=== PATIENT | female | born 1980 | race Caucasian/White ===

== ENCOUNTER 2016-05-13 19:50 | Emergency (ER) | payer SELFPAY ==
[~2016-05-13] VITALS: Ht 162.6 cm; Wt 63.5 kg
[~2016-05-13 19:50] MED LIST: ALPR1TAB PO; ALPR1TAB2 PO; AZIT250T5 PO; CEPH500T PO; CHLO25TA2 PO; CHLORTHALID; CIPR-225 PO; CIPR500T78 PO; CODE-54 PO; CPR250T PO; CPR500T PO; CYCL10TA9 PO; DIAZ-345 PO; DIAZ10TA PO; DXM4T PO; HYDR-1231 PO; HYDR-229 PO; HYDR-3583 PO; HYDR-3812 PO; HYDR-3816 PO; HYDR-3820 PO; HYDR-756 PO; HYDR-757 PO; HYDR1TAB PO; HYDR1TAB8 OP; IBUP-1773 PO; LEVO500T69 PO; LURA60TA PO; LURA60TA2 PO; METH4TAB PO; NAPR-243 PO; NAPR500T PO; NITR100C3 PO; ONDA-42 SL; ONDA8TAB13 PO; ONDAN4ODT PO; ORPH100T PO; PHEN-452 PO; PHEN-566 PO; PHEN-639 PO; PHEN-640 PO; PHEN200T27 PO; PHEN37.555 PO; PRM25T PO; SULF1TAB38 PO; TMSL.4C PO; TRAM-42 PO; TRAM50TA2 PO; TRM50T PO
--- NOTE | 2016-05-13 20:24 | ED Cough/URI ---
General Chief Complaint: Cough/Cold/Flu Symptoms Stated Complaint: CONGESTION,COUGH Source: patient History of Present Illness Time seen by provider: 20:12 Initial Comments PT C/O PRODUCTIVE COUGH AND CONGESTION X 4-5 DAYS CAN'T SLEEP DUE TO COUGH--MINIMAL IMPROVEMENT WITH ROBITUSSIN AND COUGH DROPS HAS HAD SUBJECTIVE FEVER AND CHILLS--IBUPROFEN 400 MG AT 1400 TODAY C/O SHORTNESS OF BREATH WITH COUGH C/O RIGHT MID/ UPPER BACK--WITH COUGHING AND DEEP BREATHS C/O CLEAR SINUS DRAINAGE AND SINUS PRESSURE SYMPTOMS WORSE SINCE YESTERDAY NO KNOWN SICK CONTACTS PT HAS "SEASONAL ASTHMA" AND HAS ALBUTEROL INHALER AT HOME, BUT HAS NOT USED IT PCP: [facility] Allergies and Home Medications Allergies Coded Allergies: ketorolac (Unverified Allergy, Intermediate, nausea and red streaking, 31/10) morphine (Unverified Allergy, Intermediate, throat tightening, 01/21/11) Home Medications Alprazolam 1 Mg Tab.er.24h, 1 MG PO DAILY, (Reported) Amoxicillin/Potassium Clav 1 Each Tablet, 1 EACH PO BID, #20 Prescribed by: DEYSI MAX on 05/13/162118 Benzonatate 100 Mg Capsule, 1-2 TAB PO TID, #30 Prescribed by: DEYSI MAX on 05/13/162118 Hydrocodone/Acetaminophen 1 Each Tablet, 1 EACH PO Q4H PRN for PAIN, #20 Ref 0 Prescribed by: BHAVIK LOVE on 08/09/15 1340 Hydrocodone/Acetaminophen 1 Each Tablet, 1 EACH PO QID, #10 Prescribed by: LISET DANG on 10/26/15 1021 Lurasidone HCl 60 Mg Tablet, 60 MG PO DAILY, (Reported) Methylprednisolone 4 Mg Tab.ds.pk, 4 MG PO UD, #1 Prescribed by: DEYSI MAX on 05/13/162118 Phentermine HCl 30 Mg Capsule, 30 MG PO DAILY, (Reported) Tramadol HCl 50 Mg Tablet, 50 MG PO Q4H, #20 Prescribed by: DEYSI MAX on 05/15/15 0130 Constitutional: see HPI, chills, diaphoresis, fever EENTM: nose congestion, see HPI, No ear pain, No throat pain Respiratory: see HPI, cough, short of breath Cardiovascular: no symptoms reported Gastrointestinal: no symptoms reported Genitourinary: no symptoms reported : No (ON DEPO-PROVERA AND HAS HAD BTL) Musculoskeletal: see HPI, back pain Skin: no symptoms reported Psychiatric/Neurological: No Symptoms Reported Hematologic/Lymphatic: No Symptoms Reported Immunological/Allergic: see HPI Past Tlaclny-Kmrzqt-Zbflcg Hx Patient Social History Alcohol Use: Denies Use Recreational Drug Use: No Smoking Status: Current Everyday Smoker (1 PPD) Type Used: Cigarettes Recent Foreign Travel: No Contact w/Someone Who Travel: No Recent Hopitalizations: No Immunizations Up To Date Tetanus Booster (TDap): Less than 5yrs Date of Influenza Vaccine: Oct 24, 2011 Seasonal Allergies Seasonal Allergies: Yes Surgeries HX Surgeries: Yes (R SALPINGECTOMY FOR ECTOPIC,L SALPINGECTOMY FOR HYDROSALPINX /OVARIAN CYST) Surgeries: Tubal Ligation Respiratory Hx Respiratory Disorders: Yes Respiratory Disorders: Asthma Cardiovascular Hx Cardiac Disorders: No Neurological Hx Neurological Disorders: No Reproductive System Hx Reproductive Disorders: Yes ( ) Sexually Transmitted Disease: No HIV/AIDS: No Female Reproductive Disorders: Ovarian Cyst [employer] History: Tubal Ligation Genitourinary Hx Genitourinary Disorders: Yes (NO INTERVENTION FOR KIDNEY STONES) Genitourinary Disorders: Bladder Infection, Kidney Stones Gastrointestinal Hx Gastrointestinal Disorders: No Musculoskeletal Hx Musculoskeletal Disorders: No Endocrine Hx Endocrine Disorders: No HEENT HX ENT Disorders: No Cancer Hx Cancer: No Psychosocial Hx Psychiatric Problems: Yes (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 FREQUENT TIGHT COUGH) HEENT: PERRL/EOMI, TMs normal, pharynx normal, other (NASAL MUCOSAL EDEMA, MAXILLARY SINUS TENDERNESS) Neck: non-tender, full range of motion, supple, normal inspection, No lymphadenopathy (R), No lymphadenopathy (L) Respiratory: no respiratory distress, no accessory muscle use, other (LUNG SOUNDS COARSE) Cardiovascular: normal peripheral pulses, regular rate, rhythm, no edema, no JVD, no murmur Gastrointestinal: normal bowel sounds, non tender, soft Extremities: normal inspection Neurologic/Psychiatric: application dba II-XII nml as tested, no motor/sensory deficits, alert, normal mood/affect, oriented x 3 Skin: normal color, warm/dry Progress/Results/Core Measures Results/Orders Micro Results Microbiology 05/13/16 Influenza Types A,B Antigen (LORETA) - Final, Complete My Orders Orders - DEYSI MAX DO Influenza A And B Antigens (05/13/16 20:17) Chest Pa/Lat (2 View) (05/13/16 20:17) Amoxicillin/Clavulanate Tablet (Augmenti (05/13/16 21:30) Benzonatate Capsule (Tessalon Perles) (05/13/16 21:30) Vital Signs/I&O Vital Sign - Last 12Hours 05/13/16 05/13/16 05/13/16 19:58 19:58 21:24 Temp 98.9 98.9 Pulse 128 115 Resp 18 18 B/P (MAP) 145/93 Pulse Ox 97 98 O2 Delivery Room Air Room Air Diagnostic Imaging Comments CXR--NO ACUTE PROCESS, PER RADIOLOGIST REPORT Reviewed: Reviewed by Me Departure Impression Impression: Primary Impression: Bronchitis Additional Impression: Sinusitis Disposition: 01 HOME, SELF-CARE Condition: Stable Departure-Patient Inst. Referrals: [facility] (PCP/Family) Primary Care Physician Patient Instructions: Acute Bronchitis, Adult (DC), Sinusitis, Adult (DC) Add. Discharge Instructions: ROBITUSSIN DM FOR COUGH TYLENOL 1 GRAM/ MOTRIN 800 MG 4 TIMES A DAY FOR PAIN OR FEVER LOTS OF CLEAR LIQUIDS FOLLOW UP WITH YOUR DR IN 3-4 DAYS IF NO BETTER All discharge instructions reviewed with patient and/or family. Voiced understanding. Scripts Benzonatate (Tessalon Perle) 100 Mg Capsule 1-2 TAB PO TID for Cough, #30 CAP Prov: MANSOOR,DEYSI K DO 05/13/16 Methylprednisolone (Medrol) 4 Mg Tab.ds.pk 4 MG PO UD, #1 PKG Prov: MANSOOR,DEYSI K DO 05/13/16 Amoxicillin/Potassium Clav (Augmentin 875-125 Tablet) 1 Each Tablet 1 EACH PO BID for INFECTION, #20 TAB Prov: DEYSI MAX DO 05/13/16 MANSOORDEYSI Amanda HUFFMAN May 13, 2016 20:24
--- NOTE | 2016-05-13 20:30 | Diagnostic Imaging Report ---
CHEST PA/LAT (2 VIEW) Indication: Cough Comparison: 06/04/15 Findings: No focal pneumonic consolidation, pleural effusion or pneumothorax. Normal heart size and pulmonary vasculature. Impression: No acute cardiopulmonary process. Dictated by: Dictated on workstation # [id number]
[2016-05-13] MEDS ORDERED: AMOX-358 PO (21:19)
[2016-05-13] MEDS ORDERED: BENZ-13 PO (21:19)
[2016-05-13] MEDS ORDERED: METH4TAB PO (21:19)
[2016-05-13 21:24] VITALS: BP 140/91
[2016-05-13] MEDS ORDERED: AUGMENTIN 875 MG TAB (AMOXICILLIN/CLAVULANATE) PO SCH (21:30)
[2016-05-13] MEDS ORDERED: BENZONATATE 100 MG (TESSALON) CAPSULE PO SCH (21:30)
--- OUTSIDE RECORDS SUMMARY | 2016-05-28 19:24 | XMS REPORT ---
Author Author [facility] Organization [facility] Address [address] [facility] [address] [place], [place] [id number] Care Team Providers Care Leaf Conditioner Name Role Phone PCP Unavailable Allergies and Adverse Reactions Name Reaction Notes Morphine Sulfate Ketorolac Plan of Treatment Not available. Medications Active Name Start Date Estimated Completion Date SIG Comments Depo-Provera 150 mg/mL intramuscular suspension inject 150 mg by intramuscular route every 3 months [place] 5-325 mg oral tablet take 1 tablet by oral route every 6 hours as needed for pain Keflex 500 mg oral capsule 1 Capsule TWICE daily. Xanax XR 0.5 mg oral tablet extended release 24 hr take 1 tablet (0.5 mg ) by oral route once daily Latuda 60 mg oral tablet take 1 tablet (60 mg) by oral route once daily with food (at least 350 calories) amoxicillin 500 mg oral capsule take 1 capsule (500 mg) by oral route 4 times per day Problem List Not available. Vital Signs Not available. Social History Name Description Comments Smoker 08/15/2015 - Cigarette History of Procedures Not available. Results Summary Not available. History Of Immunizations Not available. History of Past Illness Name Date of Onset Comments Anxiety Payers Not available. History of Encounters Not available.
--- OUTSIDE RECORDS SUMMARY | 2016-05-28 19:24 | XMS REPORT | Clinical Summary ---
Author Author Admin, [facility] Organization All Address Unknown Phone Unavailable Allergies, Adverse Reactions, Alerts Allergy Name Reaction Description Start Date Severity Status Provider Allergies Unknown Conditions or Problems Problem Name Problem Code Onset Date Status Entry Date Provider Comment Standard Description Annotate Problems Unknown Active Medication List Medication Instructions Start Date Stop Date Generic Name NDC Status Provider Patient Instruction PREDNISONE 20 MG ORAL TABS take 2 tabs a day for 3 days and take 1 tab a day for 3 days. PREDNISONE 70900224990 Active Ingrid Bautista MA Active
--- OUTSIDE RECORDS SUMMARY | 2016-05-28 19:25 | XMS REPORT | Clinical Summary ---
Author Author Admin, [facility] Organization All Address Unknown Phone Unavailable [...] tab a day for 3 days. PREDNISONE [id number] Active Ingrid Bautista MA Active
--- OUTSIDE RECORDS SUMMARY | 2016-05-28 19:25 | XMS REPORT ---
Author Author MARCIN VÁSQUEZ [facility] [place] eClinical[employer] Address Unknown Phone Unavailable Care Team Providers Care Volcanologist Name Role Phone MARCIN VÁSQUEZ CP Unavailable Allergies No Known Allergies Problems Problem Type Condition Code Onset Dates Condition Status Problem Phlebitis and thrombophlebitis of unspecified site 451.9 Active Problem Excessive or frequent menstruation 626.2 Active Problem Unspecified acute pericarditis 420.90 Active Problem Acute pharyngitis 462 Active Problem Generalized anxiety disorder F41.1 Active Problem Depression F32.9 Active Problem Kidney stone N20.0 Active Problem Anxiety state, unspecified 300.00 Active Problem Other malaise and fatigue 780.79 Active Problem Anxiety F41.9 Active Problem Other and unspecified ovarian cyst 620.2 Active Medications No Known Medications Results No Known Results Summary Purpose eClinicalWorks Submission
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
--- OUTSIDE RECORDS SUMMARY | 2016-05-28 19:27 | XMS REPORT ---
Author Author [facility] Organization [facility] Address [address] [place], [place] [id number] Care Team Providers Care Hydramatic Specialist Name Role Phone PCP Unavailable Allergies and Adverse Reactions Name Reaction Notes Morphine Sulfate Ketorolac Plan of Treatment Not available. Medications Active Name Start Date Estimated Completion Date SIG Comments Depo-Provera 150 mg/mL intramuscular suspension inject 150 mg by intramuscular route every 3 months [place] 5-325 mg oral tablet take 1 tablet [...]
--- OUTSIDE RECORDS SUMMARY | 2016-05-28 19:27 | XMS REPORT ---
Author Author LINH FLORES Organization [employer] Address Unknown Phone Unavailable Care Team Providers Care Manager News Name Role Phone LINH FLORES CP Unavailable Allergies, Adverse Reactions, Alerts Substance Reaction Event Type Morphine Sulfate Info Not Available Drug Allergy Ketorolac Tromethamine Info Not Available Drug Allergy Problems Problem Type Condition Code Onset Dates Condition Status Problem Phlebitis and thrombophlebitis of unspecified site 451.9 Active Problem Excessive or frequent menstruation 626.2 Active Problem Unspecified acute pericarditis 420.90 Active Assessment Renal lithiasis N20.0 Active Problem Acute pharyngitis 462 Active Problem Generalized anxiety disorder F41.1 Active Problem Depression F32.9 Active Problem Kidney stone N20.0 Active Problem Anxiety state, unspecified 300.00 Active Problem Other malaise and fatigue 780.79 Active Problem Anxiety F41.9 Active Problem Other and unspecified ovarian cyst 620.2 Active Medications Medication Code System Code Instructions Start Date End Date Status Dosage Pyridium [facility] [address]-52 100 MG Orally Three times a day August 23, 2015 August 25, 2015 1 tablet after meals Ketoprofen [facility] [address]-51 75 MG Orally Three times a day August 23, 2015 1 capsule [place] [facility] [address]-20 5-325 MG Orally every 6 hrs August 23, 2015 1 tablet as needed Depo-Provera [facility] [address]-15 150 mg/mL Dec 21, 2013 inject 150 mg by intramuscular route every 3 months Procedures Procedure Coding System Code Date Office Visit, Est Pt., Level 3 CPT-4 84122 August 23, 2015 Vital Signs Date/Time: August 23, 2015 Cardiac Monitoring Heart Rate 78 bpm Weight 139.8 lbs Height 64 in Blood Pressure Diastolic 76 mmHg Blood Pressure Systolic 138 mmHg Results No Known Results Summary Purpose [employer] Submission
--- OUTSIDE RECORDS SUMMARY | 2016-05-28 19:27 | XMS REPORT ---
Author Author MARCIN VÁSQUEZ Organization [employer] Address Unknown Phone Unavailable Care Team Providers Care Barratte Operator Name Role Phone MARCIN VÁSQUEZ CP Unavailable Allergies No Known Allergies Problems Problem Type Condition Code Onset Dates Condition Status Problem Acute pharyngitis 462 Active Problem Unspecified acute pericarditis 420.90 Active Problem Phlebitis and thrombophlebitis of unspecified site 451.9 Active Problem Anxiety F41.9 Active Problem Other and unspecified ovarian cyst 620.2 Active Problem Depression F32.9 Active Problem Other malaise and fatigue 780.79 Active Problem Excessive or frequent menstruation 626.2 Active Problem Major depressive disorder, single episode, unspecified 296.20 Active Problem Anxiety state, unspecified 300.00 Active Medications No Known Medications Results No Known Results Summary Purpose [employer] Submission
--- OUTSIDE RECORDS SUMMARY | 2016-05-28 19:28 | XMS REPORT ---
Author Author DEREJE TEMPLETON eClinicalWorks Address Unknown Phone Unavailable Care Team Providers Care [facility] Safety Tech Name Role Phone DEREJE TEMPLETON Unavailable Allergies, Adverse Reactions, Alerts Substance Reaction Event Type Morphine Sulfate Info Not Available Drug Allergy toradol Info Not Available Non Drug Allergy Problems Problem Type Condition Code Onset Dates Condition Status Problem Acute pharyngitis 462 Active Problem Unspecified acute pericarditis 420.90 Active Problem Phlebitis and thrombophlebitis of unspecified site 451.9 Active Assessment Dental examination Z01.20 Active Problem Anxiety F41.9 Active Problem Other and unspecified ovarian cyst 620.2 Active Problem Depression F32.9 Active Problem Other malaise and fatigue 780.79 Active Problem Excessive or frequent menstruation 626.2 Active Problem Major depressive disorder, single episode, unspecified 296.20 Active Problem Anxiety state, unspecified 300.00 Active Medications Medication Code System Code Instructions Start Date End Date Status Dosage Depo-Provera [facility] [address]-04 150 mg/mL Dec 21, 2013 inject 150 mg by intramuscular route every 3 months Latuda [facility] [address]-11 60 MG Orally Once a day Dec 12, 2014 1 tablet with food Xanax XR [facility] [address]-55 0.5 MG Orally Once a day Dec 12, 2014 1 tablet Procedures Procedure Coding System Code Date INTRAORL-PERIAPICAL 1 FILM 44749 CPT-4 D0220 Feb 24, 2015 RESIN COMPOS - 3 SURFACES ANTERIOR CPT-4 D2332 Feb 24, 2015 LTD ORAL EVALUATION - PROBLEM FOCUS CPT-4 D0140 Feb 24, 2015 Vital Signs Date/Time: Feb 24, 2015 Blood Pressure Diastolic 82 mmHg Blood Pressure Systolic 128 mmHg Height 64 in Results No Known Results Summary Purpose eClinicalWorks Submission
--- OUTSIDE RECORDS SUMMARY | 2016-05-28 19:31 | XMS REPORT ---
Author Author MARCIN VÁSQUEZ [facility] eClinicalWorks Address Unknown Phone Unavailable Care Team Providers Care Personal Investment Adviser Name Role Phone MARCIN VÁSQUEZ CP Unavailable Allergies, Adverse Reactions, Alerts Substance Reaction Event Type Morphine Sulfate Info Not Available Drug Allergy toradol Info Not Available Non Drug Allergy Problems Problem Type Condition Code Onset Dates Condition Status Problem Acute pharyngitis 462 Active Problem Unspecified acute pericarditis 420.90 Active Problem Phlebitis and thrombophlebitis of unspecified site 451.9 Active Assessment Depression F32.9 Active Assessment Anxiety F41.9 Active Problem Anxiety F41.9 Active Problem Other and unspecified ovarian cyst 620.2 Active Problem Depression F32.9 Active Problem Other malaise and fatigue 780.79 Active Problem Excessive or frequent menstruation 626.2 Active Problem Major depressive disorder, single episode, unspecified 296.20 Active Problem Anxiety state, unspecified 300.00 Active Medications Medication Code System Code Instructions Start Date End Date Status Dosage Xanax XR [facility] [address]-06 0.5 MG Orally Once a day Dec 12, 2014 1 tablet Depo-Provera [facility] [address]-64 150 mg/mL Dec 21, 2013 inject 150 mg by intramuscular route every 3 months Latuda [facility] [address]-50 60 MG Orally Once a day Dec 12, 2014 1 tablet with food Procedures Procedure Coding System Code Date Office Visit, Est Pt., Level 3 CPT-4 00995 Feb 07, 2015 Vital Signs Date/Time: Feb 07, 2015 Temperature 97.3 F Weight 149.6 lbs Height 64 in BMI 25.68 Index Blood Pressure Diastolic 70 mmHg Blood Pressure Systolic 120 mmHg Cardiac Monitoring Heart Rate 78 bpm Results No Known Results Summary Purpose eClinicalWorks Submission
--- OUTSIDE RECORDS SUMMARY | 2016-05-28 19:31 | XMS REPORT ---
Author Author MARCIN VÁSQUEZ Organization [employer] Address Unknown Phone Unavailable Care Team Providers Care Auto Glass Technician Name Role Phone MARCIN VÁSQUEZ CP Unavailable [...]
--- OUTSIDE RECORDS SUMMARY | 2016-05-28 19:31 | XMS REPORT ---
Author Author MARCIN VÁSQUEZ [facility] e[employer] Address Unknown Phone Unavailable Care Team Providers Care Therapy Tech Name Role Phone MARCIN VÁSQUEZ CP Unavailable Allergies, Adverse Reactions, Alerts Substance Reaction Event Type Morphine Sulfate Info Not Available Drug Allergy toradol Info Not Available Non Drug Allergy Problems Problem Type Condition Code Onset Dates Condition Status Problem Acute pharyngitis 462 Active Assessment Anxiety F41.9 Active Problem Major depressive disorder, single episode, unspecified 296.20 Active Problem Anxiety state, unspecified 300.00 Active Problem Other and unspecified ovarian cyst 620.2 Active Problem Unspecified acute pericarditis 420.90 Active Problem Phlebitis and thrombophlebitis of unspecified site 451.9 Active Problem Other malaise and fatigue 780.79 Active Problem Excessive or frequent menstruation 626.2 Active Medications Medication Code System Code Instructions Start Date End Date Status Dosage Depo-Provera [facility] [place] 2] [address]-96 150 mg/mL Dec 21, 2013 inject 150 mg by intramuscular route every 3 months Latuda [facility] [place]NOTE 2] [address]-14 60 MG Orally Once a day Dec 12, 2014 1 tablet with food Xanax XR [facility] [place]NOTE 2] [address]-73 0.5 MG Orally Once a day Dec 12, 2014 1 tablet Procedures Procedure Coding System Code Date Office Visit, Est Pt., Level 3 CPT-4 35773 Dec 12, 2014 Vital Signs Date/Time: Dec 12, 2014 Temperature 98.2 F Weight 151 lbs Height 64 in BMI 25.92 Index Blood Pressure Diastolic 68 mmHg Blood Pressure Systolic 128 mmHg Cardiac Monitoring Heart Rate 76 bpm Results No Known Results Summary Purpose eClinicalWorks Submission
== END 2016-05-13 21:24 | disposition home or self-care (01) ==
LOC: EDUNIT# 19:50 → ER 19:51
DX: J40 Bronchitis, not specified as acute or chronic (principal); J01.90 Acute sinusitis, unspecified; F17.210 Nicotine dependence, cigarettes, uncomplicated
CPT/HCPCS: 71020; 87804; 99282

== ENCOUNTER 2016-06-04 08:58 | Emergency (ER) | payer SELFPAY ==
[~2016-06-04] VITALS: Ht 162.6 cm; Wt 47.2 kg
[~2016-06-04 08:58] MED LIST changes: +AMOX-358 PO; +BENZ-13 PO
[2016-06-04 09:20] LABS: BILIRUBIN,URINE NEGATIVE (NEGATIVE); KETONES,URINE NEGATIVE (NEGATIVE); LEUKOCYTE ESTERASE ,URINE 1+ (NEGATIVE); NITRITE,URINE NEGATIVE (NEGATIVE); PH,URINE 7 (5-9); PROTEIN,URINE NEGATIVE (NEGATIVE); UROBILINOGEN,URINE NORMAL (NORMAL)
[2016-06-04 09:33] LABS: SQUAMOUS EPITHELIAL CELL,UR >50 /HPF
[2016-06-04] MEDS ORDERED: NS IV 1000 ML 1,000 ML IV ONE (09:37)
[2016-06-04] MEDS ORDERED: KETOROLAC 30 MG/ML VIAL IVP ONE (09:45)
[2016-06-04 09:52] LABS: BASOPHILS % (AUTO) 0 % (0-10); EOSINOPHILS # (AUTO) 0.2 10^3/uL (0.0-0.3); EOSINOPHILS % (AUTO) 2 % (0-10); LYMPHOCYTES # (AUTO) 1.9 X 10^3 (1.0-4.0); LYMPHOCYTES % (AUTO) 23 % (12-44); MEAN CORPUSCULAR HEMOGLOBIN 32 PG (25-34); MEAN CORPUSCULAR HGB CONC 33 G/DL (32-36); MEAN CORPUSCULAR VOLUME 95 FL (80-99); MEAN PLATELET VOLUME 9.9 FL (7.4-10.4); MONOCYTES # (AUTO) 0.5 X 10^3 (0.0-1.0); MONOCYTES % (AUTO) 7 % (0-12); NEUTROPHILS # (AUTO) 5.8 X 10^3 (1.8-7.8); NEUTROPHILS % (AUTO) 69 % (42-75); PLATELET COUNT 276 10^3/uL (130-400); RED BLOOD COUNT 4.81 10^6/uL (4.35-5.85); RED CELL DISTRIBUTION WIDTH 13.1 % (10.0-14.5); WHITE BLOOD COUNT 8.4 10^3/uL (4.3-11.0)
[2016-06-04 10:11] LABS: ALANINE AMINOTRANSFERASE 29 U/L (0-55); ALBUMIN 4.4 G/DL (3.2-4.5); ANION GAP 10 MMOL/L (5-14); ASPARTATE AMINO TRANSFERASE 28 U/L (5-34); BILIRUBIN,TOTAL 0.5 MG/DL (0.1-1.0); BLOOD UREA NITROGEN 9 MG/DL (7-18); BUN/CREATININE RATIO 12; CALCIUM 9.2 MG/DL (8.5-10.1); CARBON DIOXIDE 23 MMOL/L (21-32); CHLORIDE 106 MMOL/L (98-107); CREATININE SERUM 0.77 MG/DL (0.60-1.30); GFR ESTIMATED > 60; GLUCOSE 96 MG/DL (70-105); POTASSIUM 4.5 MMOL/L (3.6-5.0); SODIUM 139 MMOL/L (135-145); TOTAL PROTEIN 7.1 G/DL (6.4-8.2)
--- NOTE | 2016-06-04 11:00 | Diagnostic Imaging Report ---
INDICATION: Right flank pain. Exam compared 08/13/2015 FINDINGS: Colonic fecal load is unremarkable. Bilateral pelvic calcifications identical to prior presumed phleboliths. No suspicious radiopacities. No radiographic evidence of organomegaly. No mass effect. No evidence for bowel obstruction. IMPRESSION: Stable unremarkable abdominal radiographs Dictated by: Dictated on workstation # [id number]
--- NOTE | 2016-06-04 11:04 | ED Abdominal Pain ---
General Chief Complaint: Back Problems Stated Complaint: RIGHT FLANK PAIN Nursing Triage Note: AMBULATED TO ROOM 09 WITH COMPLAINS OF RIGHT LOWER BACK PAIN STARTING YESTERDAY. STATES SHE THINKS IT IS A KIDNEY STONE AGAIN. Sepsis Screen: No Definite Risk Source of Information: Patient Exam Limitations: No Limitations History of Present Illness Time Seen By Provider: 09:03 Initial Comments This 36-year-old woman presents to the emergency room with complaints of right flank and right lower quadrant pain. She reports it feels similar to ureterolithiasis she has had in the past. Her pain started yesterday and became severe when she was urinating. She denies any blood in her urine. She has had slight dysuria. She denies any injury that could've caused the pain. She has a history of prior renal stones. This feels very similar to prior episodes. She took ibuprofen and 04:00. She denies any nausea, vomiting, diarrhea, or fever. Review of her chart reveals a CT scan performed in October of last year that demonstrated no stones within the kidneys or ureters. Allergies and Home Medications Allergies Coded Allergies: morphine (Unverified Allergy, Intermediate, throat tightening, 01/21/11) ketorolac (Unverified Adverse Reaction, Intermediate, nausea and red streaking, 06/04/16) Home Medications Hydrocodone/Acetaminophen 1 Each Tablet, 1 EACH PO Q4H PRN for PAIN, #10 Prescribed by: SKIP FLORENCE on 06/04/16 1139 Review of Systems Constitutional: no symptoms reported EENTM: No Symptoms Reported Respiratory: No Symptoms Reported Cardiovascular: No Symptoms Reported Gastrointestinal: See HPI Genitourinary: See HPI Musculoskeletal: no symptoms reported Skin: no symptoms reported Psychiatric/Neurological: No Symptoms Reported Endocrine: No Symptoms Reported Past [place]-Batchl-Kfomiu Hx Patient Social History Type Used: Cigarettes Recent Foreign Travel: No Contact w/Someone Who Travel: No Recent Infectious Disease Expo: No Recent Hopitalizations: No Immunizations Up To Date Tetanus Booster (TDap): Less than 5yrs Date of Influenza Vaccine: Oct 24, 2011 Seasonal Allergies Seasonal Allergies: Yes Surgeries HX Surgeries: Yes (R SALPINGECTOMY FOR ECTOPIC,L SALPINGECTOMY FOR HYDROSALPINX /OVARIAN CYST) Surgeries: Tubal Ligation Respiratory Hx Respiratory Disorders: Yes Respiratory Disorders: Asthma Cardiovascular Hx Cardiac Disorders: No Neurological Hx Neurological Disorders: No Reproductive System Hx Reproductive Disorders: Yes ( ) Sexually Transmitted Disease: No HIV/AIDS: No Female 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 Genitourinary Hx Genitourinary Disorders: Yes (NO INTERVENTION FOR KIDNEY STONES) Genitourinary Disorders: Bladder Infection, Kidney Stones Gastrointestinal Hx Gastrointestinal Disorders: No Musculoskeletal Hx Musculoskeletal Disorders: No Endocrine Hx Endocrine Disorders: No HEENT HX ENT Disorders: No Cancer Hx Cancer: No Psychosocial Hx Psychiatric Problems: Yes Behavioral Health Disorders: Anxiety, Suicide Attempts, Bipolar, Depression Integumentary HX Skin/Integumentary Disorder: No Blood Transfusions Hx Blood Disorders: No Family Medical History Significant Family History: CAD Under 55 Years Old Physical Exam Vital Signs VS - Last 72 Hours, by Label 06/04/16 06/04/16 09:12 11:49 Temp 98.4 Pulse 103 66 Resp 16 16 B/P (MAP) 115/75 Pulse Ox 99 98 Capillary Refill : Less Than 3 Seconds General Appearance: WD/WN, no apparent distress HEENT: PERRL/EOMI, normal ENT inspection Neck: normal inspection Respiratory: lungs clear, normal breath sounds, no respiratory distress, no accessory muscle use Cardiovascular: regular rate, rhythm, no edema, no murmur Gastrointestinal: normal bowel sounds, soft, tenderness (right flank and right lower quadrant) Extremities: normal inspection, no pedal edema Back: normal inspection, CVA tenderness (R) (mild) Neurologic/Psychiatric: claims adjuster II-XII nml as tested, no motor/sensory deficits, alert, normal mood/affect, oriented x 3 Skin: normal color, warm/dry Progress/Results/Core Measures Results/Orders Lab Results Laboratory Tests Test 06/04/16 09:10 06/04/16 09:45 Range/Units Urine Color YELLOW Urine Clarity VERY CLOUDY H Urine pH 7 5-9 Urine Specific Chapman 1.005 L 1.016-1.022 Urine Protein NEGATIVE NEGATIVE Urine Glucose (UA) NEGATIVE NEGATIVE Urine Ketones NEGATIVE NEGATIVE Urine Nitrite NEGATIVE NEGATIVE Urine Bilirubin NEGATIVE NEGATIVE Urine Urobilinogen NORMAL NORMAL MG/DL Urine Leukocyte Esterase 1+ H NEGATIVE Urine RBC (Auto) NEGATIVE NEGATIVE Urine RBC NONE /HPF Urine WBC 2-5 /HPF Urine Squamous Epithelial Cells >50 H /HPF Urine Crystals NONE /LPF Urine Bacteria LARGE H /HPF Urine Casts NONE /LPF Urine Mucus NEGATIVE /LPF Urine Culture Indicated NO White Blood Count 8.4 4.3-11.0 10^3/uL Red Blood Count 4.81 4.35-5.85 10^6/uL Hemoglobin 15.2 11.5-16.0 G/DL Hematocrit 46 35-52 % Mean Corpuscular Volume 95 80-99 FL Mean Corpuscular Hemoglobin 32 25-34 PG Mean Corpuscular Hemoglobin Concent 33 32-36 G/DL Red Cell Distribution Width 13.1 10.0-14.5 % Platelet Count 276 130-400 10^3/uL Mean Platelet Volume 9.9 7.4-10.4 FL Neutrophils (%) (Auto) 69 42-75 % Lymphocytes (%) (Auto) 23 12-44 % Monocytes (%) (Auto) 7 0-12 % Eosinophils (%) (Auto) 2 0-10 % Basophils (%) (Auto) 0 0-10 % Neutrophils # (Auto) 5.8 1.8-7.8 X 10^3 Lymphocytes # (Auto) 1.9 1.0-4.0 X 10^3 Monocytes # (Auto) 0.5 0.0-1.0 X 10^3 Eosinophils # (Auto) 0.2 0.0-0.3 10^3/uL Basophils # (Auto) 0.0 0.0-0.1 10^3/uL Sodium Level 139 135-145 MMOL/L Potassium Level 4.5 3.6-5.0 MMOL/L Chloride Level 106 98-107 MMOL/L Carbon Dioxide Level 23 21-32 MMOL/L Anion Gap 10 5-14 MMOL/L Blood Urea Nitrogen 9 7-18 MG/DL Creatinine 0.77 0.60-1.30 MG/DL Estimat Glomerular Filtration Rate > 60 BUN/Creatinine Ratio 12 Glucose Level 96 70-105 MG/DL Calcium Level 9.2 8.5-10.1 MG/DL Total Bilirubin 0.5 0.1-1.0 MG/DL Aspartate Amino Transf (AST/SGOT) 28 5-34 U/L Alanine Aminotransferase (ALT/SGPT) 29 0-55 U/L Alkaline Phosphatase 84 40-136 U/L Total Protein 7.1 6.4-8.2 G/DL Albumin 4.4 3.2-4.5 G/DL Serum Test, Qualitative NEGATIVE NEGATIVE Leigh Ann Levy - SKIP MARS MD Ua Culture If Indicated (06/04/16 09:03) Cbc With Automated Diff (06/04/16 09:37) Comprehensive Metabolic Panel (06/04/16 09:37) Saline Lock/Iv-Start (06/04/16 09:37) Ns Iv 1000 Ml (Sodium Chloride 0.9%) (06/04/16 09:37) Ketorolac Injection (Toradol Injection) (06/04/16 09:45) Hcg,Qualitative Serum (06/04/16 09:39) Abdomen, Flat & Upright/Decub (06/04/16 09:40) Glycopyrrolate Injection (Robinul Inject (06/04/16 11:45) Hydrocodone/Apap 5/325 Tablet (Lortab 5 (06/04/16 11:45) Medications Given in ED Current Medications Medications Dose Ordered Sig/Jesusita Route Start Time Stop Time Status Last Admin Dose Admin Acetaminophen/ Hydrocodone Bitart 1 tab ONCE ONCE PO 06/04/16 11:45 06/04/16 11:46 DC 06/04/16 11:45 1 TAB Glycopyrrolate 0.2 mg ONCE ONCE IV 06/04/16 11:45 06/04/16 11:46 DC 06/04/16 11:43 0.2 MG Ketorolac Tromethamine 30 mg ONCE ONCE IVP 06/04/16 09:45 06/04/16 09:46 DC 06/04/16 09:58 30 MG Sodium Chloride 1,000 ml @ 0 mls/hr Q0M ONCE IV 06/04/16 09:37 06/04/16 09:39 DC 06/04/16 09:59 1,000 MLS/HR Vital Signs/I&O Vital Sign - Last 12Hours 06/04/16 06/04/16 09:12 11:49 Temp 98.4 Pulse 103 66 Resp 16 16 B/P (MAP) 115/75 Pulse Ox 99 98 Blood Pressure Mean: 88 Progress Note : Progress Note Workup was essentially unremarkable. Patient reports this pain feels very similar to prior renal stones. Pattern of pain would suggest renal stone as well. Urine showed no blood. X-ray showed no evidence of stones. I discussed options with patient and together we elected to forego CT imaging. Patient has had numerous CTs in the past and the risk of further radiation exposure seems to outweigh the benefits of CT at this time. Diagnostic Imaging Diagonstic Imaging: Xray Plain Films/CT/US/NM/MRI: abdomen Comments KUB and upright abdominal films viewed by me and report reviewed. See report below: NAME: JAYANT FALK [facility] REC#: [id number] PT STATUS: REG ER : 1980 PHYSICIAN: SKIP MARS MD ADMIT DATE: 06/04/16/ER Draft Date of Exam:06/04/16 ABDOMEN, FLAT UPRIGHT/DECUB INDICATION: Right flank pain. Exam compared 08/13/2015 FINDINGS: Colonic fecal load is unremarkable. Bilateral pelvic calcifications identical to prior presumed phleboliths. No suspicious radiopacities. No radiographic evidence of organomegaly. No mass effect. No evidence for bowel obstruction. IMPRESSION: Stable unremarkable abdominal radiographs Dictated on workstation # [id number] Dict: 06/04/16 1039 Trans: 06/04/16 1059 [facility] [id number] Interpreted by: BEST CASTILLO Departure Impression Impression: Primary Impression: Right flank pain Additional Impression: Right lower quadrant pain Disposition: HOME, SELF-CARE Condition: Improved Departure-Patient Inst. Decision time for Depature: 11:20 Referrals: [facility] (PCP/Family) Primary Care Physician Patient Instructions: Acute Abdomen (Belly Pain), Kidney Stones in Adults Add. Discharge Instructions: Strain your urine and bring any stones collected to your doctor. Follow-up with your primary care provider soon as you are able. You may take ibuprofen 400 mg every 6 hours as needed for pain. Add hydrocodone for pain not controlled by ibuprofen. All discharge instructions reviewed with patient and/or family. Voiced understanding. Scripts Hydrocodone/Acetaminophen (Hydrocodon -Acetaminophen 5-325) 1 Each Tablet 1 EACH PO Q4H Y for PAIN, #10 TAB Prov: SKIP MARS MD 06/04/16 Copy Copies To 1: CLARK AMBRIZ JOSHUA T MD Jun 04, 2016 11:04
[2016-06-04] MEDS ORDERED: HYDR-3812 PO (11:39)
[2016-06-04] MEDS ORDERED: HYDROcodone/APAP 5 MG/325 MG (LORTAB) TAB PO ONE (11:45)
[2016-06-04] MEDS ORDERED: GLYCOPYRROLATE 0.2 MG/ML (ROBINUL) 2 ML VIAL IV ONE (11:45)
[2016-06-04 11:49] VITALS: BP 121/64
== END 2016-06-04 11:49 | disposition home or self-care (01) ==
LOC: EDUNIT# 08:58 → ER 09:00
DX: R10.31 Right lower quadrant pain (principal); R30.0 Dysuria
CPT/HCPCS: 36415; 74020; 80053; 81000; 84703; 85025; 96374

== ENCOUNTER 2016-07-08 01:05 | Emergency (ER) | payer SELFPAY ==
[~2016-07-08] VITALS: Ht 162.6 cm; Wt 63.5 kg
[2016-07-08] MEDS ORDERED: IBUPROFEN 800 MG (MOTRIN) TAB PO STA (01:13)
[2016-07-08] MEDS ORDERED: PHEN-452 PO (01:14)
--- NOTE | 2016-07-08 01:19 | ED Lower Extremity ---
General Chief Complaint: Lower Extremity Stated Complaint: INJ R ANKLE Source: patient Exam Limitations: no limitations History of Present Illness Time seen by provider: 01:08 Initial Comments Here with complaint of right foot and right lateral ankle pain after being pushed by her goat and her foot came off the step and came down very hard. She is complaining of pain to the lateral aspect of her right foot and to the lateral malleolus. Denies other injury. Onset: just prior to arrival (approximately 45 minutes ago) Severity: moderate Pain/Injury Location: right foot, right ankle Method of Injury: twisted Modifying Factors: Improves With Immobilization, Worse With Movement Allergies and Home Medications Allergies Coded Allergies: morphine (Unverified Allergy, Intermediate, throat tightening, 01/21/11) ketorolac (Unverified Adverse Reaction, Intermediate, nausea and red streaking, 06/04/16) Home Medications Hydrocodone/Acetaminophen 1 Each Tablet, 1 EACH PO Q4H PRN for PAIN, #10 Prescribed by: SKIP FLORENCE on 06/04/16 1139 Constitutional: see HPI, No chills, No fever Respiratory: no symptoms reported Cardiovascular: no symptoms reported Musculoskeletal: see HPI, joint pain, joint swelling, muscle pain Skin: no symptoms reported Psychiatric/Neurological: No Symptoms Reported Past Uhwcyyi-Holmik-Ktrxht Hx Patient Social History Alcohol Use: Denies Use Recreational Drug Use: No Smoking Status: Current Everyday Smoker Type Used: Cigarettes Recent Foreign Travel: No Contact w/Someone Who Travel: No Recent Hopitalizations: No Immunizations Up To Date Tetanus Booster (TDap): Less than 5yrs Date of Influenza Vaccine: Oct 24, 2011 Seasonal Allergies Seasonal Allergies: Yes Surgeries HX Surgeries: Yes (R SALPINGECTOMY FOR ECTOPIC,L SALPINGECTOMY FOR HYDROSALPINX /OVARIAN CYST) Surgeries: Tubal Ligation Respiratory Hx Respiratory Disorders: Yes Respiratory Disorders: Asthma Cardiovascular Hx Cardiac Disorders: No Neurological Hx Neurological Disorders: No Reproductive System Hx Reproductive Disorders: Yes ( ) Sexually Transmitted Disease: No HIV/AIDS: No 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 Genitourinary Hx Genitourinary Disorders: Yes (NO INTERVENTION FOR KIDNEY STONES) Genitourinary Disorders: Bladder Infection, Kidney Stones Gastrointestinal Hx Gastrointestinal Disorders: No Musculoskeletal Hx Musculoskeletal Disorders: No Endocrine Hx Endocrine Disorders: No HEENT HX ENT Disorders: No Cancer Hx Cancer: No Psychosocial Hx Psychiatric Problems: Yes Behavioral Health Disorders: Anxiety, Suicide Attempts, Bipolar, Depression Integumentary HX Skin/Integumentary Disorder: No Blood Transfusions Hx Blood Disorders: No Reviewed Nursing Assessment Reviewed/Agree w Nursing PMH: Yes Family Medical History Significant Family History: CAD Under 55 Years Old Physical Exam Vital Signs Capillary Refill : General Appearance: WD/WN, no apparent distress Cardiovascular: regular rate, rhythm, no murmur Respiratory: lungs clear, normal breath sounds Legs: bilateral leg non-tender, bilateral leg normal inspection, bilateral leg normal range of motion Ankles: left ankle non-tender, left ankle normal inspection, left ankle normal range of motion, right ankle pain (lateral malleolus), right ankle soft tissue tenderness, right ankle swelling Feet: left foot non-tender, left foot normal inspection, left foot normal range of motion, right foot pain, right foot soft tissue tenderness, right foot swelling (near base of fifth metatarsal) Neurologic/Tendon: normal sensation, normal motor functions, normal tendon functions Neurologic/Psychiatric: alert, oriented x 3 Skin: normal color, warm/dry, No ecchymosis Progress/Results/Core Measures Results/Orders My Orders Orders - TIMOTHY GARCIA MD Foot, Right, 3 View (07/08/16 01:13) Ankle, Right, 3 Views (07/08/16 01:13) Ibuprofen Tablet (Motrin Tablet) (07/08/16 01:13) Progress Note : Progress Note Seen and evaluated. Ibuprofen 800 mg by mouth. Ice pack given. X-ray of right foot and ankle ordered. Monitor patient. Diagnostic Imaging Diagonstic Imaging: Xray Plain Films/CT/US/NM/MRI: ankle Comments Right ankle no acute fracture Reviewed: Reviewed by Me Diagonstic Imaging: Xray Plain Films/CT/US/NM/MRI: other Comments Right foot no acute fracture Reviewed: Reviewed by Me Departure Impression Impression: Primary Impression: Sprain and strain of foot Additional Impression: Right ankle sprain Qualified Codes: S93.401A - Sprain of unspecified ligament of right ankle, initial encounter Disposition: HOME, SELF-CARE Condition: Improved Departure-Patient Inst. Decision time for Depature: 01:32 Referrals: [facility] (PCP/Family) Primary Care Physician Patient Instructions: Ankle Sprain (DC) Add. Discharge Instructions: All discharge instructions reviewed with patient and/or family. Voiced understanding. You may take ibuprofen 800 mg every 8 hours as needed for pain. You may take Tylenol 1000 mg every 8 hours as needed for pain. Use ice packs to affected area 20 minutes per hour as needed. You may use Manish wrap and ankle splint as needed. Use crutches as needed. Elevate the foot to reduce swelling. Follow- up with your doctor this week for recheck and further evaluation if not improved. Return for worse pain, swelling, weakness or other concerns as needed. TIMOTHY GARCIA MD July 08, 2016 01:19
[2016-07-08 01:39] VITALS: BP 108/79
--- NOTE | 2016-07-08 06:29 | Diagnostic Imaging Report ---
CLINICAL INDICATION: Patient right foot and ankle pain. No known injury. EXAM: X-ray of the right ankle, 3 views. COMPARISON: X-ray of the right foot dated 07/08/2016. FINDINGS: There is no evidence of acute fracture or dislocation. There is no significant bone or joint abnormality. Ankle mortise and syndesmotic joints are unremarkable. IMPRESSION: Unremarkable x-ray of the right ankle. Dictated by: Dictated on workstation # [id number]
--- NOTE | 2016-07-08 06:48 | Diagnostic Imaging Report ---
Clinical indication: Patient with right foot and ankle pain. No known injury. Exam: X-ray of the right foot, 3 views. Comparison: X-ray of the right ankle dated 07/08/2016. Findings: There is no evidence of acute fracture or dislocation. There is a small calcification seen immediately adjacent to the base of the first distal phalanx. Remainder of the right foot is unremarkable. Impression: There is no significant abnormality of the right foot seen. Dictated by: Dictated on workstation # [id number]
== END 2016-07-08 01:40 | disposition home or self-care (01) ==
LOC: EDUNIT# 01:05 → ER 01:07
DX: S93.401A Sprain of unspecified ligament of right ankle, initial encounter (principal); S96.211A Strain of intrinsic muscle and tendon at ankle and foot level, right foot, initial encounter; S93.601A Unspecified sprain of right foot, initial encounter; F17.210 Nicotine dependence, cigarettes, uncomplicated; W55.39XA Other contact with other hoof stock, initial encounter; Y99.8 Other external cause status
CPT/HCPCS: 73610; 73630; 99285

== ENCOUNTER 2016-11-01 22:09 | Emergency (ER) | payer OTHER ==
[~2016-11-01] VITALS: Ht 162.6 cm; Wt 61.2 kg
[~2016-11-01 22:09] MED LIST changes: +AZIT250T12 PO; -AZIT250T5 PO; -PHEN-452 PO; +PHEN30CA2 PO
--- OUTSIDE RECORDS SUMMARY | 2016-11-01 22:14 | XMS REPORT ---
Author Author HANNAH Escobar Organization [facility] Address Unknown Care Team Providers Care Pearl Cutter Name Role Phone lucianaHANNAH Carlson Unavailable PROBLEMS Type Condition ICD9-CM Code [id number] Code Onset Dates Condition Status SNOMED Code Problem Other and unspecified ovarian cyst 620.2 Active 51712167 Problem Phlebitis and thrombophlebitis of unspecified site 451.9 Active 547419039 Problem Acute pharyngitis 462 Active 652344267 Problem Other malaise and fatigue 780.79 Active 444395931 Problem Excessive or frequent menstruation 626.2 Active 607118255 Problem Kidney stone N20.0 Active 90289206 Problem Generalized anxiety disorder F41.1 Active 74107377 Problem Anxiety state, unspecified 300.00 Active 090821400 Problem Unspecified acute pericarditis 420.90 Active 02296113 Problem Anxiety F41.9 Active 60711245 Problem Depression F32.9 Active 74446751 ALLERGIES Substance Reaction Event Type Date Status Morphine Sulfate Unknown Drug Allergy Jan, Active Ketorolac Tromethamine Unknown Drug Allergy Jan, Active SOCIAL HISTORY No smoking Hx information available PLAN OF CARE Activity Details Follow Up prn Reason:te #30 VITAL SIGNS Height 64 in 2016-01-23 MEDICATIONS Medication Instructions Dosage Frequency Start Date End Date Duration Status Amoxicillin 500 MG Orally 4 times a day 1 capsule 6h Jan, Jan, 7 days Active Driver 5-325 MG Orally every 6 hrs 1 tablet as needed 6h Jan, Jan, 4 days Active RESULTS No Results PROCEDURES Procedure Date Ordered Related Diagnosis Body Site LTD ORAL EVALUATION - PROBLEM FOCUS Jan 23, 2016 INTRAORL-PERIAPICAL 1 FILM 34180 Jan 23, 2016 IMMUNIZATIONS No Known Immunizations
--- OUTSIDE RECORDS SUMMARY | 2016-11-01 22:15 | XMS REPORT ---
Author Author HANNAH Escobar [facility] Address Unknown Care Team Providers Care Child Nutrition Manager Name Role Phone HANNAH Escobar Unavailable PROBLEMS Type Condition ICD9-CM Code [id number] Code Onset Dates Condition Status SNOMED Code Problem Other and unspecified ovarian cyst 620.2 Active 40686895 Problem Phlebitis and thrombophlebitis of unspecified site 451.9 Active 338819881 Problem Acute pharyngitis 462 Active 443709576 Problem Other malaise and fatigue 780.79 Active 589531943 Problem Excessive or frequent menstruation 626.2 Active 572619727 Problem Kidney stone N20.0 Active 30390515 Problem Generalized anxiety disorder F41.1 Active 79618446 Problem Anxiety state, unspecified 300.00 Active 240925787 Problem Unspecified acute pericarditis 420.90 Active 15569955 Problem Anxiety F41.9 Active 16955373 Problem Depression F32.9 Active 28880468 ALLERGIES Unknown Allergies SOCIAL HISTORY No smoking Hx information available PLAN OF CARE VITAL SIGNS MEDICATIONS Unknown Medications RESULTS No Results PROCEDURES No Known procedures IMMUNIZATIONS No Known Immunizations
--- OUTSIDE RECORDS SUMMARY | 2016-11-01 22:15 | XMS REPORT ---
Author Author HANNAH Escobar [facility] [address] Address Unknown Care Team Providers Care Plaster Lather Name Role Phone lucianalucianaNIKKORAMON HANNAH Unavailable PROBLEMS Type Condition ICD9-CM Code [id number] Code Onset Dates Condition Status SNOMED Code Problem Other and unspecified ovarian cyst 620.2 Active 72264312 Problem Phlebitis and thrombophlebitis of unspecified site 451.9 Active 924318463 Problem Acute pharyngitis 462 Active 432477937 Problem Other malaise and fatigue 780.79 Active 693826250 Problem Excessive or frequent menstruation 626.2 Active 997685928 Problem Kidney stone N20.0 Active 20657684 Problem Generalized anxiety disorder F41.1 Active 87491011 Problem Anxiety state, unspecified 300.00 Active 046123633 Problem Unspecified acute pericarditis 420.90 Active 20644628 Problem Anxiety F41.9 Active 85093363 Problem Depression F32.9 Active 59110113 ALLERGIES Substance Reaction Event Type Date Status Morphine Sulfate Unknown Drug Allergy Feb, Active Ketorolac Tromethamine Unknown Drug Allergy Feb, Active SOCIAL HISTORY No smoking Hx information available PLAN OF CARE VITAL SIGNS Height 64 in 2016-02-26 Blood pressure systolic 107 mmHg 2016-02-26 Blood pressure diastolic 66 mmHg 2016-02-26 MEDICATIONS Unknown Medications RESULTS No Results PROCEDURES Procedure Date Ordered Related Diagnosis Body Site EXTRAC ERUPTED TOOTH/EXPOSED ROOT Feb 26, 2016 IMMUNIZATIONS No Known Immunizations
--- OUTSIDE RECORDS SUMMARY | 2016-11-01 22:16 | XMS REPORT ---
Author Author HANNAH Escobar [facility] Address Unknown Care Team Providers Care Shoe Stitcher Name Role Phone HANNAH Escobar Unavailable PROBLEMS Type Condition ICD9-CM Code [id number] Code Onset Dates Condition Status SNOMED Code Problem Other and unspecified ovarian cyst 620.2 Active 26053231 Problem Phlebitis and thrombophlebitis of unspecified site 451.9 Active 644460087 Problem Acute pharyngitis 462 Active 672793404 Problem Other malaise and fatigue 780.79 Active 900944323 Problem Excessive or frequent menstruation 626.2 Active 273040450 Problem Kidney stone N20.0 Active 77819787 Problem Generalized anxiety disorder F41.1 Active 33860442 Problem Anxiety state, unspecified 300.00 Active 062366449 Problem Unspecified acute pericarditis 420.90 Active 31273445 Problem Anxiety F41.9 Active 00113484 Problem Depression F32.9 Active 08302485 ALLERGIES Substance Reaction Event Type Date Status Morphine Sulfate Unknown Drug Allergy Feb, Active Ketorolac Tromethamine Unknown Drug Allergy Feb, Active SOCIAL HISTORY No smoking Hx information available PLAN OF CARE VITAL SIGNS MEDICATIONS Unknown Medications RESULTS No Results PROCEDURES Procedure Date Ordered Related Diagnosis Body Site LTD ORAL EVALUATION - PROBLEM FOCUS Mar 13, 2016 INTRAORL-PERIAPICAL 1 FILM 00040 Mar 13, 2016 IMMUNIZATIONS No Known Immunizations
--- OUTSIDE RECORDS SUMMARY | 2016-11-01 22:17 | XMS REPORT ---
Author Author HANNAH Escobar [facility] Address Unknown Care Team Providers Care Sloop Captain Name Role Phone HANNAH Escobar Unavailable PROBLEMS Type Condition ICD9-CM Code BHP78-PE Code Onset Dates Condition Status SNOMED Code Problem Other and unspecified ovarian cyst 620.2 Active 86727543 Problem Phlebitis and thrombophlebitis of unspecified site 451.9 Active 732987583 Problem Acute pharyngitis 462 Active 435790397 Problem Other malaise and fatigue 780.79 Active 234099815 Problem Excessive or frequent menstruation 626.2 Active 747157217 Problem Kidney stone N20.0 Active 61575621 Problem Generalized anxiety disorder F41.1 Active 69274514 Problem Anxiety state, unspecified 300.00 Active 368195590 Problem Unspecified acute pericarditis 420.90 Active 25984966 Problem Anxiety F41.9 Active 34781534 Problem Depression F32.9 Active 13085631 ALLERGIES Unknown Allergies SOCIAL HISTORY No smoking Hx information available PLAN OF CARE VITAL SIGNS MEDICATIONS Unknown Medications RESULTS No Results PROCEDURES No Known procedures IMMUNIZATIONS No Known Immunizations
--- OUTSIDE RECORDS SUMMARY | 2016-11-01 22:18 | XMS REPORT ---
Author Author HANNAH Escobar [facility] Address Unknown Care Team Providers Care Slipman Name Role Phone lucianaHANNAH Carlson Unavailable PROBLEMS Type Condition ICD9-CM Code UMP12-NW Code Onset Dates Condition Status SNOMED Code Problem Other and unspecified ovarian cyst 620.2 Active 05519969 Problem Phlebitis and thrombophlebitis of unspecified site 451.9 Active 499022047 Problem Acute pharyngitis 462 Active 283279525 Problem Other malaise and fatigue 780.79 Active 818973700 Problem Excessive or frequent menstruation 626.2 Active 793628343 Problem Kidney stone N20.0 Active 99629701 Problem Generalized anxiety disorder F41.1 Active 96796538 Problem Anxiety state, unspecified 300.00 Active 653008667 Problem Unspecified acute pericarditis 420.90 Active 63925555 Problem Anxiety F41.9 Active 32523569 Problem Depression F32.9 Active 56911804 ALLERGIES Substance Reaction Event Type Date Status Morphine Sulfate Unknown Drug Allergy Feb, Active Ketorolac Tromethamine Unknown Drug Allergy Feb, Active SOCIAL HISTORY No smoking Hx information available PLAN OF CARE VITAL SIGNS Height 64 in 2016-03-04 Blood pressure systolic 125 mmHg 2016-03-04 Blood pressure diastolic 80 mmHg 2016-03-04 MEDICATIONS Medication Instructions Dosage Frequency Start Date End Date Duration Status Amoxicillin 500 MG Orally 4 times a day 1 capsule 6h Feb, Feb, 7 days Active [place] 5-325 MG Orally every 6 hrs 1 tablet as needed 6h Feb, Feb, 4 days Active RESULTS No Results PROCEDURES Procedure Date Ordered Related Diagnosis Body Site LTD ORAL EVALUATION - PROBLEM FOCUS Mar 04, 2016 INTRAORL-PERIAPICAL 1 FILM [id number] Mar 04, 2016 IMMUNIZATIONS No Known Immunizations
[2016-11-01] MEDS ORDERED: fentaNYL INJECTION 100 MCG/2 ML AMP IVP STA (23:35)
[2016-11-01] MEDS ORDERED: NS IV 500 ML 500 ML IV ONE (23:35)
--- NOTE | 2016-11-01 23:39 | ED Abdominal Pain ---
General Chief Complaint: Abdominal/GI Problems Stated Complaint: ABDOMINAL PAIN Nursing Triage Note: ABDOMINAL PAIN AFTER EATING DINNER Sepsis Screen: No Definite Risk Source of Information: Patient Exam Limitations: No Limitations History of Present Illness Time Seen By Provider: 23:31 Initial Comments Patient presents to ER after less than one day of epigastric to right upper quadrant pain and abdominal pain. This started tonight after about 9:30 when she ate some leftover [place] food had shrimp in it. She did not realize are shrimp in until after she had eaten it and she says she has no allergy to shrimp. She has no shortness of breath or tightness in her throat. She says this started about half hour later she started having some epigastric abdominal pain felt like a twisting pain that is constant and better when she keeps her knees flexed up towards her chest. Worse when she moves. She says the pain began to radiate to her right upper quadrant she says she's had nausea and dry heaves but no vomiting. No diarrhea or constipation. Last bowel movement was this morning. She's had both her tubes tied. She smokes about half pack a day and denies any alcohol or recreational drug use. Of note she has not had her gallbladder or appendix out. The only surgery she's had is for 2 ectopic pregnancies. She has however had several kidney stones and she was 17 years old. Allergies and Home Medications Allergies Coded Allergies: morphine (Unverified Allergy, Intermediate, throat tightening, 01/21/11) ketorolac (Unverified Adverse Reaction, Intermediate, nausea and red streaking, 06/04/16) Home Medications No Active Prescriptions or Reported Meds Review of Systems Constitutional: No chills, No diaphoresis, No fever, No malaise EENTM: No Eye Pain, No Ear Pain Respiratory: Denies Cough, Denies Shortness of Air Cardiovascular: Denies Chest Pain, Denies Lightheadedness Gastrointestinal: See HPI, Abdominal Pain, Denies Constipated, Denies Diarrhea , Nausea, Denies Vomiting Genitourinary: Denies Burning, Denies Discharge Musculoskeletal: No back pain, No joint pain Skin: No pruritus, No rash Psychiatric/Neurological: Denies Headache, Denies Numbness, Denies Paresthesia Past Bfcqqgg-Wjejcv-Wraxga Hx Patient Social History Alcohol Use: Denies Use Recreational Drug Use: No Drug of Choice: cannibus Smoking Status: Current Everyday Smoker Type Used: Cigarettes 2nd Hand Smoke Exposure: Yes Recent Foreign Travel: No Contact w/Someone Who Travel: No Recent Infectious Disease Expo: No Recent Hopitalizations: No Immunizations Up To Date Tetanus Booster (TDap): Less than 5yrs Date of Influenza Vaccine: Oct 24, 2011 Seasonal Allergies Seasonal Allergies: Yes Surgeries History of Surgeries: Yes (d&c) Surgeries: Tubal Ligation Respiratory History of Respiratory Disorde: Yes Respiratory Disorders: Asthma Cardiovascular History of Cardiac Disorders: No Neurological History of Neurological Disord: No Reproductive System : No Hx Reproductive Disorders: Yes ( ) Sexually Transmitted Disease: No HIV/AIDS: No Female Reproductive Disorders: Ovarian Cyst HOSE TENDER History: Tubal Ligation Genitourinary History of Genitourinary Disor: Yes Genitourinary Disorders: Bladder Infection, Kidney Stones Gastrointestinal History of Gastrointestinal Di: No Musculoskeletal History of Musculoskeletal Dis: No Endocrine History of Endocrine Disorders: No HEENT History of HEENT Disorders: No Cancer History of Cancer: No Psychosocial History of Psychiatric Problem: Yes Behavioral Health Disorders: Anxiety, Suicide Attempts, Bipolar, Depression Integumentary History of Skin or Integumenta: No Blood Transfusions History of Blood Disorders: No Family Medical History Significant Family History: CAD Under 55 Years Old Physical Exam Vital Signs VS - Last 72 Hours, by Label 11/01/16 11/01/16 23:12 23:54 Temp 98.1 98.1 Pulse 96 Resp 16 B/P (MAP) 129/66 Pulse Ox 98 O2 Delivery Room Air Capillary Refill : Less Than 3 Seconds General Appearance: WD/WN, moderate distress HEENT: PERRL/EOMI, pharynx normal Neck: non-tender, normal inspection Respiratory: chest non-tender, lungs clear, normal breath sounds Cardiovascular: normal peripheral pulses, regular rate, rhythm Peripheral Pulses: 2+ Radial Pulses (R), 2+ Radial Pulses (L) Gastrointestinal: normal bowel sounds, no organomegaly, guarding (epigastric and right upper quadrant), rebound, tenderness (right upper quadrant, Mendoza's positive, rebound tenderness right lower quadrant. Tenderness over the epigastrium as well.) Extremities: normal inspection, no pedal edema, normal capillary refill Back: normal inspection, CVA tenderness (R), No CVA tenderness (L) Neurologic/Psychiatric: alert, normal mood/affect, oriented x 3 Skin: normal color, warm/dry Lymphatic: no adenopathy Progress/Results/Core Measures Results/Orders Lab Results Laboratory Tests Test 11/01/16 23:45 11/01/16 23:50 Range/Units Urine Color YELLOW Urine Clarity CLEAR Urine pH 6.5 5-9 Urine Specific [place] 1.020 1.016-1.022 Urine Protein NEGATIVE NEGATIVE Urine Glucose (UA) NEGATIVE NEGATIVE Urine Ketones NEGATIVE NEGATIVE Urine Nitrite NEGATIVE NEGATIVE Urine Bilirubin NEGATIVE NEGATIVE Urine Urobilinogen NORMAL NORMAL MG/DL Urine Leukocyte Esterase 1+ H NEGATIVE Urine RBC (Auto) NEGATIVE NEGATIVE Urine RBC NONE /HPF Urine WBC 2-5 /HPF Urine Squamous Epithelial Cells 2-5 /HPF Urine Crystals NONE /LPF Urine Bacteria FEW H /HPF Urine Casts NONE /LPF Urine Mucus NEGATIVE /LPF Urine Culture Indicated YES Urine Opiates Screen NEGATIVE NEGATIVE Urine Oxycodone Screen NEGATIVE NEGATIVE Urine Methadone Screen NEGATIVE NEGATIVE Urine Propoxyphene Screen NEGATIVE NEGATIVE Urine Barbiturates Screen NEGATIVE NEGATIVE Ur Tricyclic Antidepressants Screen NEGATIVE NEGATIVE Urine Phencyclidine Screen NEGATIVE NEGATIVE Urine Amphetamines Screen NEGATIVE NEGATIVE Urine Methamphetamines Screen NEGATIVE NEGATIVE Urine Benzodiazepines Screen NEGATIVE NEGATIVE Urine Cocaine Screen NEGATIVE NEGATIVE Urine Cannabinoids Screen POSITIVE H NEGATIVE White Blood Count 7.6 4.3-11.0 10^3/uL Red Blood Count 4.14 L 4.35-5.85 10^6/uL Hemoglobin 13.4 11.5-16.0 G/DL Hematocrit 39 35-52 % Mean Corpuscular Volume 94 80-99 FL Mean Corpuscular Hemoglobin 32 25-34 PG Mean Corpuscular Hemoglobin Concent 35 32-36 G/DL Red Cell Distribution Width 11.8 10.0-14.5 % Platelet Count 245 130-400 10^3/uL Mean Platelet Volume 9.7 7.4-10.4 FL Neutrophils (%) (Auto) 52 42-75 % Lymphocytes (%) (Auto) 36 12-44 % Monocytes (%) (Auto) 9 0-12 % Eosinophils (%) (Auto) 2 0-10 % Basophils (%) (Auto) 0 0-10 % Neutrophils # (Auto) 4.0 1.8-7.8 X 10^3 Lymphocytes # (Auto) 2.7 1.0-4.0 X 10^3 Monocytes # (Auto) 0.7 0.0-1.0 X 10^3 Eosinophils # (Auto) 0.2 0.0-0.3 10^3/uL Basophils # (Auto) 0.0 0.0-0.1 10^3/uL Sodium Level 141 135-145 MMOL/L Potassium Level 3.6 3.6-5.0 MMOL/L Chloride Level 108 H 98-107 MMOL/L Carbon Dioxide Level 24 21-32 MMOL/L Anion Gap 9 5-14 MMOL/L Blood Urea Nitrogen 8 7-18 MG/DL Creatinine 0.74 0.60-1.30 MG/DL Estimat Glomerular Filtration Rate > 60 BUN/Creatinine Ratio 11 Glucose Level 93 70-105 MG/DL Calcium Level 9.1 8.5-10.1 MG/DL Magnesium Level 2.0 1.8-2.4 MG/DL Total Bilirubin 0.4 0.1-1.0 MG/DL Aspartate Amino Transf (AST/SGOT) 12 5-34 U/L Alanine Aminotransferase (ALT/SGPT) 11 0-55 U/L Alkaline Phosphatase 77 40-136 U/L Total Protein 6.5 6.4-8.2 GM/DL Albumin 4.0 3.2-4.5 GM/DL Lipase 16 8-78 U/L My Orders Orders - AWAIS SLOAN Cbc With Automated Diff (11/01/16 23:35) Comprehensive Metabolic Panel (11/01/16 23:35) Drug Screen Stat (Urine) (11/01/16 23:35) Lipase (11/01/16 23:35) Magnesium (11/01/16 23:35) Ua Culture If Indicated (11/01/16 23:35) Fentanyl Injection (Sublimaze Injection (11/01/16 23:35) Saline Lock/Iv-Start (11/01/16 23:35) Ns Iv 500 Ml (Sodium Chloride 0.9%) (11/01/16 23:35) Ondansetron Injection (Zofran Injectio (11/01/16 23:45) Ct Abdomen/Pelvis Wo (11/02/16 00:10) Urine Culture (11/01/16 23:45) Medications Given in ED Current Medications Medications Dose Ordered Sig/Jesusita Route Start Time Stop Time Status Last Admin Dose Admin Ondansetron HCl 4 mg ONCE ONCE IVP 11/01/16 23:45 11/01/16 23:46 DC 11/01/16 23:53 4 MG Sodium Chloride 500 ml @ 0 mls/hr Q0M ONCE IV 11/01/16 23:35 11/01/16 23:38 DC 11/01/16 23:53 0 MLS/HR Vital Signs/I&O Vital Sign - Last 12Hours 11/01/16 11/01/16 23:12 23:54 Temp 98.1 98.1 Pulse 96 Resp 16 B/P (MAP) 129/66 Pulse Ox 98 O2 Delivery Room Air Blood Pressure Mean: 87 Progress Note : Time: 00:46 Progress Note Patient's pain in the epigastrium, right upper quadrant and right lower quadrant does not correlate to anything on CT. She does have some cholelithiasis possibly but does not seem to be cholecystitis. Would recommend that this is probably related to something she ate versus a virus and that if she wants to get her gallbladder taken care of follow up with Dr. Cui in his clinic. Departure Impression Impression: Primary Impression: Abdominal wall pain Disposition: HOME, SELF-CARE Condition: Stable Departure-Patient Inst. Decision time for Depature: 00:53 Referrals: [facility] (PCP) Primary Care Physician MARCIN VÁSQUEZ (Family) Primary Care Physician Patient Instructions: Gallstones (DC) Add. Discharge Instructions: Drink plenty fluids. If you're having nausea take the Zofran 1 tablet under the tongue allowed to dissolve and absorbent to your mouth every 6 hours as needed. Tylenol or Motrin are reasonable for your pain. Follow-up with her primary care physician if you're not getting improvement in the next couple days. For your gallstones seen on CT scan if you wish to have them electively removed you've a talk to a surgeon such as Dr. Cui at his clinic [phone] Friday morning and get an appointment. All discharge instructions reviewed with patient and/or family. Voiced understanding. Scripts Ondansetron (Zofran Odt) 4 Mg Tab.rapdis 4 MG PO Q6H Y for NAUSEA/VOMITING-1ST LINE, #14 TAB 0 Refills Prov: AWAIS SLOAN 11/02/16 Work/School Note: Work Release Form Date Seen in the Emergency Department: Nov 02, 2016 Return to Work: Nov 04, 2016 Restrictions: No Restrictions Copy Copies To 1: CLARK AMBRIZ TITUS J Nov 01, 2016 23:39
[2016-11-01] MEDS ORDERED: ONDANSETRON 4 MG/2 ML (SDV) Z0FRAN IVP ONE (23:45)
[2016-11-01 23:54] LABS: BILIRUBIN,URINE NEGATIVE (NEGATIVE); KETONES,URINE NEGATIVE (NEGATIVE); LEUKOCYTE ESTERASE ,URINE 1+ (NEGATIVE); NITRITE,URINE NEGATIVE (NEGATIVE); PH,URINE 6.5 (5-9); PROTEIN,URINE NEGATIVE (NEGATIVE); UROBILINOGEN,URINE NORMAL (NORMAL)
[2016-11-02] LABS: BASOPHILS % (AUTO) 0 % (0-10); EOSINOPHILS # (AUTO) 0.2 10^3/uL (0.0-0.3); EOSINOPHILS % (AUTO) 2 % (0-10); LYMPHOCYTES # (AUTO) 2.7 X 10^3 (1.0-4.0); LYMPHOCYTES % (AUTO) 36 % (12-44); MEAN CORPUSCULAR HEMOGLOBIN 32 PG (25-34); MEAN CORPUSCULAR HGB CONC 35 G/DL (32-36); MEAN CORPUSCULAR VOLUME 94 FL (80-99); MEAN PLATELET VOLUME 9.7 FL (7.4-10.4); MONOCYTES # (AUTO) 0.7 X 10^3 (0.0-1.0); MONOCYTES % (AUTO) 9 % (0-12); NEUTROPHILS % (AUTO) 52 % (42-75); PLATELET COUNT 245 10^3/uL (130-400); RED BLOOD COUNT 4.14 10^6/uL (4.35-5.85); RED CELL DISTRIBUTION WIDTH 11.8 % (10.0-14.5); WHITE BLOOD COUNT 7.6 10^3/uL (4.3-11.0)
[2016-11-02 00:22] LABS: ALANINE AMINOTRANSFERASE 11 U/L (0-55); ANION GAP 9 MMOL/L (5-14); ASPARTATE AMINO TRANSFERASE 12 U/L (5-34); BILIRUBIN,TOTAL 0.4 MG/DL (0.1-1.0); BLOOD UREA NITROGEN 8 MG/DL (7-18); BUN/CREATININE RATIO 11; CALCIUM 9.1 MG/DL (8.5-10.1); CARBON DIOXIDE 24 MMOL/L (21-32); CHLORIDE 108 MMOL/L (98-107); CREATININE SERUM 0.74 MG/DL (0.60-1.30); GFR ESTIMATED > 60; GLUCOSE 93 MG/DL (70-105); LIPASE 16 U/L (8-78); POTASSIUM 3.6 MMOL/L (3.6-5.0); SODIUM 141 MMOL/L (135-145); TOTAL PROTEIN 6.5 GM/DL (6.4-8.2)
[2016-11-02] MEDS ORDERED: ONDA4TAB8 PO (00:54)
[2016-11-02 01:02] VITALS: BP 118/56
--- NOTE | 2016-11-02 07:00 | Diagnostic Imaging Report ---
PROCEDURE: CT abdomen and pelvis without contrast. TECHNIQUE: Multiple contiguous axial images were obtained through the abdomen and pelvis without the use of intravenous contrast. INDICATION: 36-year-old female with abdominal pain. COMPARISON: 10/26/2015 FINDINGS: Evaluation of the abdominal viscera is mildly limited without contrast. Lower chest: The lung bases are clear. No pericardial or pleural effusion. Peritoneum: No free intraperitoneal air or fluid. Liver and biliary system: Unenhanced liver is normal. Small amount of layering hyperdensity within the gallbladder may relate to cholelithiasis or sludge. Spleen and Pancreas: Spleen is normal. Unenhanced pancreas is grossly normal. Adrenals: Normal. tract: No renal or ureteral calculi. No obstructive uropathy. Urinary bladder is normally distended without wall thickening or intraluminal calculi. Uterus and ovaries are normal in appearance for patient's age. GI tract: Stomach is decompressed. No bowel obstruction. No pericolonic inflammatory changes. Normal appendix. Vasculature and Lymph nodes: Normal caliber aorta. No abdominal or pelvic lymphadenopathy. Musculoskeletal: No concerning osseous lesion. IMPRESSION: 1. No obstructive uropathy or urinary tract calculi. 2. No bowel obstruction, appendicitis or colitis. 3. Layering hyperdensities in the gallbladder may represent cholelithiasis. No evidence of acute cholecystitis. 4. Findings are in agreement with the preliminary report. Dictated by: Dictated on workstation # [id number]
[2016-11-14] MEDS ORDERED: DOCU-143 PO (11:48)
[2016-11-14] MEDS ORDERED: HYDR-3812 PO (11:48)
== END 2016-11-02 00:59 | disposition home or self-care (01) ==
LOC: EDUNIT# 22:09 → ER 22:10
DX: R10.13 Epigastric pain (principal); R10.11 Right upper quadrant pain; J45.909 Unspecified asthma, uncomplicated; F41.9 Anxiety disorder, unspecified; F31.9 Bipolar disorder, unspecified; F17.210 Nicotine dependence, cigarettes, uncomplicated; Z98.51 Tubal ligation status; Z82.49 Family history of ischemic heart disease and other diseases of the circulatory system; Z87.448 Personal history of other diseases of urinary system; Z91.5 Personal history of self-harm; Z87.442 Personal history of urinary calculi
CPT/HCPCS: 36415; 74176; 80053; 80306; 81000; 83690; 83735; 85025; 87088; 96361; 96374; 96375

== ENCOUNTER 2016-11-13 14:27 | Outpatient (CLI) | payer OTHER ==
[~2016-11-13] VITALS: Ht 162.6 cm; Wt 66.7 kg
[~2016-11-13 14:27] MED LIST changes: +ONDA4TAB8 PO
[2016-11-14] MEDS ORDERED: HYDR-3812 PO (11:48)
[2016-11-14] MEDS ORDERED: DOCU-143 PO (11:48)
== END 2016-11-13 14:44 ==
LOC: PREOP 14:27
PROVIDERS: ATTEND Surgery
DX: Z01.818 Encounter for other preprocedural examination (principal); K81.9 Cholecystitis, unspecified

== ENCOUNTER 2016-11-14 07:55 | Day surgery (SDC) | payer OTHER ==
[~2016-11-14] VITALS: Ht 162.6 cm; Wt 66.7 kg
[~2016-11-14 07:55] MED LIST changes: -AZIT250T12 PO; +AZIT250T5 PO; +PHEN-452 PO; -PHEN30CA2 PO
[2016-11-14] MEDS ORDERED: ROCURONIUM 50 MG/5 ML (ZEMURON) VIAL IV ONE (08:02)
[2016-11-14] MEDS ORDERED: proPOfol 200 MG/20 ML (DIPRIVAN) VIAL IV ONE (08:02)
[2016-11-14] MEDS ORDERED: SEVOFLURANE (ULTANE) 15 ML INHAL SOLN ONE (08:02)
[2016-11-14] MEDS ORDERED: LIDOCAINE PF 2% 5 ML (XYLOCAINE) VIAL ONE (08:02)
[2016-11-14] MEDS ORDERED: ONDANSETRON 4 MG/2 ML (SDV) Z0FRAN ONE ×2 (08:02→12:20)
[2016-11-14] MEDS ORDERED: MIDAZOLAM 2 MG/2 ML (VERSED) VIAL ONE (08:02)
[2016-11-14] MEDS ORDERED: fentaNYL INJECTION 100 MCG/2 ML AMP ONE ×3 (08:02)
[2016-11-14] MEDS ORDERED: DEXAMETHASONE 10 MG/ML (DECADRON) 1 ML VIAL ONE (08:03)
[2016-11-14] MEDS ORDERED: BUPIVACAINE 0.5% 30 ML (SENSORCAINE) VIAL ONE (08:09)
[2016-11-14] MEDS ORDERED: LIDOCAINE 1% INJ 20 ML (XYLOCAINE) VIAL ONE (08:09)
[2016-11-14 08:30] VITALS: BP 121/70
[2016-11-14] MEDS ORDERED: CATHETER FLUSH 10 ML SYR IV PRN (08:30)
[2016-11-14] MEDS ORDERED: ceFAZolin 1 GM/NS 50 ML IVPB IV ONE ×2 (08:30)
--- NOTE | 2016-11-14 09:18 | Progress Note-Pre Operative ---
Pre-Operative Progress Note H&P Reviewed The H&P was reviewed, patient examined and no changes noted. Date Seen by Provider: Nov 14, 2016 Time Seen by Provider: 09:18 Date H&P Reviewed: Nov 14, 2016 Time H&P Reviewed: 09:18 Pre-Operative Diagnosis: symptomatic cholelithiasis BALDEMAR TABARES DO Nov 14, 2016 09:18
[2016-11-14] MEDS: LACTATED RINGERS 1,000 ML IV PRN ×2 (10:13→11:15)
[2016-11-14] MEDS ORDERED: NEOSTIGMINE (BLOXIVERZ ) 1 MG/1ML 10 ML VIAL ONE (11:29)
[2016-11-14] MEDS ORDERED: GLYCOPYRROLATE 0.2 MG/ML (ROBINUL) 2 ML VIAL ONE (11:29)
--- NOTE | 2016-11-14 11:47 | Progress Note-Post Operative ---
Post-Operative Progess Note Surgeon (s)/Farm Tractor Mechanic (s) Surgeon BALDEMAR TABARES DO Farm Tractor Mechanic: Dr. Bello Pre-Operative Diagnosis symptomatic cholelithiasis Post-Operative Diagnosis same Procedure & Operative Findings Date of Procedure 11/14/16 Procedure Performed/Findings lap zachary c ioc Anesthesia Type gen Estimated Blood Loss Estimated blood loss (mL): min Specimens/Packing Specimens Removed gallbladder BALDEMAR TABARES DO Nov 14, 2016 11:47
[2016-11-14] MEDS ORDERED: HYDR-3812 PO (11:48)
[2016-11-14] MEDS ORDERED: DOCU-143 PO (11:48)
--- NOTE | 2016-11-14 11:49 | Discharge Inst-Simple/Standard ---
Discharge Inst-Standard Discharge Medications New, Converted or Re-Newed RX: RX on Chart Patient Instructions/Follow Up Plan of Care/Instructions/FU: 2 weeks otto Activity as Tolerated: No Discharge Diet: Regular Diet Other Inst to Patient Follow up Appt: Make appointment for 2 weeks. Instructions: No lifting greater than 10 pounds. No strenuous activity. May shower in 24 hours, no tub bath or soaking. Use incentive spirometer at home as directed. No Smoking Skin/Wound Care: You have special glue over incisions it will fall off on its own. Symptoms to Report: Appetite Changes, Extremity Discoloration, Numbness/Tingling, Swelling Increased , Bleeding Excessive, Eyesight Changes, Pain Increased, Urine Color Change, Constipation(Persistent), Fever over 101 degree F, Pain/Pressure in chest, Urinating Difficulty, Cough Up/Vomit Blood, Heart Beat Irreg/Pounding, Pain/ Pressure in jaw, Vaginal Bleeding Increase, Cramps in feet or legs, Lightheadedness, Pain/Pressure in shoulder, Diarrhea(Persistent), Memory Changes Suddenly, Questions/Concerns, Weight gain consecutive days, Dizziness/ Fainting, Nausea/Vomiting, Shortness of Breath, Weight gain over 2 pounds. If eyes or skin turn yellow notify physician. If questions or concerns contact your physician Or seek help at emergency department. BALDEMAR TABARES DO Nov 14, 2016 11:49
[2016-11-14] MEDS ORDERED: HYDROcodone/APAP 5 MG/325 MG (LORTAB) TAB PO PRN (12:00)
[2016-11-14] MEDS ORDERED: ONDANSETRON 4 MG/2 ML (SDV) Z0FRAN IVP PRN (12:15)
[2016-11-14] MEDS ORDERED: HYDROmorphone (DILAUDID) 2 MG/ML VIAL ONE (12:20)
[2016-11-14] MEDS: HYDROmorphone (DILAUDID) 2 MG/ML VIAL IVP PRN ×3 (12:29→12:49)
[2016-11-14 13:20] VITALS: BP 142/94
--- NOTE | 2016-11-14 13:27 | Diagnostic Imaging Report ---
EXAMINATION: Intraoperative cholangiogram. INDICATION: Laparoscopic cholecystectomy. FLUOROSCOPY TIME: 13 seconds of fluoroscopy time was utilized. CONTRAST: 4 cc of Omnipaque 300 was used during the exam. FINDINGS: There is opacification of the CBD with smooth tapering distally without any filling defect seen. There is prompt passage of contrast into this portion of the duodenum seen. IMPRESSION: No evidence of CBD obstruction or stones. Dictated by: Dictated on workstation # [id number]
[2016-11-14 13:50] VITALS: BP 135/76
[2016-11-14 14:20] VITALS: BP 146/77
--- NOTE | 2016-11-15 05:23 | OPERATIVE REPORT ---
DATE OF SERVICE: 11/14/2016 PREOPERATIVE DIAGNOSIS: Symptomatic cholelithiasis. POSTOPERATIVE DIAGNOSIS: Symptomatic cholelithiasis. PROCEDURE: Laparoscopic cholecystectomy with intraoperative cholangiogram. SURGEON: Baldemar Gandhi DO HOME CARE ASSOCIATE: who assisted in retraction, dissection and closure. ANESTHESIA: General. ESTIMATED BLOOD LOSS: Minimal. COMPLICATIONS: None. INDICATIONS: The patient is a 36-year-old female who has been having right lower quadrant abdominal pain. She had a CT scan demonstrating gallstones. She was having pain that was worsened by eating certain foods. She was explained risks and benefits of procedure and wished to proceed with procedure. Consent was signed in the chart. PROCEDURE: The patient was taken to the operating suite, she was prepped and draped in sterile fashion. Surgical pause was performed. Local anesthetic was infiltrated at the inferior aspect of the umbilicus and the incision was made down through the skin and then cautery used to dissect down to the fascia, which was then grasped, elevated and the abdomen was then entered. A balloon trocar was then placed. Pneumoperitoneum was achieved. Under direct visualization with the laparoscope a 5 mm trocar was placed in the subxiphoid region and two 5 mm trocars were placed in the right upper quadrant. The gallbladder had some adhesions to it, which were then taken down with blunt and cautery dissection and also the adhesion from the liver up to the anterior abdominal wall, which was also taken down with cautery dissection. The gallbladder was grasped, elevated. All the adhesions were taken down and the cystic duct and cystic artery were then dissected out. Clips were placed on the proximal and distal portion of the cystic artery and a clip was placed on the distal portion of the cystic duct. The cystic duct was then partially transected. An Arrow catheter was inserted to the duct, the abdomen was inflated and cholangiogram was then performed. There were no filling defects or any obstructing pathology in the duct work. Contrast made its way into the duodenum without difficulty. The Arrow catheter was then removed. Clips were placed on the proximal portion of the cystic duct. The cystic duct was then transected along with the cystic artery. There was also a posterior branch of the cystic artery which had to be dissected out. Clips were placed in the proximal and distal portion and this was then transected. Hook cautery was used to dissect the gallbladder from the gallbladder fossa achieving hemostasis and the gallbladder was removed in its entirety, was then placed in an Endobag and removed through the 12 mm trocar site. The abdomen was then irrigated and suctioned. Hemostasis had been achieved. The abdomen was then desufflated, the trocars were removed. The fascial defect was then closed using 0 Vicryl in a [id number] fashion. The skin was then closed using 4-0 Vicryl in a subcutaneous fashion. The area was then washed and dried and Dermabond was placed over the incision. The patient tolerated the procedure well without any complications. She was taken to the recovery room in stable condition. Job ID: [id number] DocumentID: [id number] Dictated Date: 11/14/2016 20:00:11 [place] Date: 11/15/2016 05:23:00 Dictated By: BALDEMAR GANDHI DO
== END 2016-11-14 14:45 | disposition home or self-care (01) ==
LOC: SDC 07:55
PROVIDERS: ATTEND Surgery
DX: K81.1 Chronic cholecystitis (principal); J45.909 Unspecified asthma, uncomplicated; F41.9 Anxiety disorder, unspecified; F17.210 Nicotine dependence, cigarettes, uncomplicated; Z79.899 Other long term (current) drug therapy
CPT/HCPCS: 84703; 87081; 94664

== ENCOUNTER 2017-11-06 23:32 | Emergency (ER) | payer BC, OTHER ==
[~2017-11-06] VITALS: Ht 162.6 cm; Wt 68.0 kg
[~2017-11-06 23:32] MED LIST changes: +ACHD5005 PO; +AZIT250T12 PO; -AZIT250T5 PO; -BENZ-13 PO; +BENZ100C18 PO; +DOCU-143 PO; -HYDR-3812 PO; +HYDR-4227 PO; -HYDR-756 PO; +NAPR-1071 PO; -NAPR500T PO; -PHEN-452 PO; +PHEN30CA2 PO
[2017-11-07] MEDS ORDERED: SULF1TAB35 PO (00:05)
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
[2017-11-07 00:08] VITALS: BP 130/91
[2017-11-07] MEDS ORDERED: TRIM/SULFAMETH 160/800 (SEPTRA DS) TAB PO ONE (00:15)
== END 2017-11-07 00:08 | disposition home or self-care (01) ==
LOC: EDUNIT# 23:32 → ER 23:35
DX: S81.832A Puncture wound without foreign body, left lower leg, initial encounter (principal); J45.909 Unspecified asthma, uncomplicated; F41.9 Anxiety disorder, unspecified; F31.9 Bipolar disorder, unspecified; F12.10 Cannabis abuse, uncomplicated; Z77.22 Contact with and (suspected) exposure to environmental tobacco smoke (acute) (chronic); Z91.5 Personal history of self-harm; Z82.49 Family history of ischemic heart disease and other diseases of the circulatory system; Z98.51 Tubal ligation status; Z87.448 Personal history of other diseases of urinary system; Z88.5 Allergy status to narcotic agent; Z88.4 Allergy status to anesthetic agent
CPT/HCPCS: 99283

== ENCOUNTER 2018-12-28 08:29 | Emergency (ER) | payer SELFPAY ==
[~2018-12-28] VITALS: Ht 162 cm; Wt 70.4 kg
[~2018-12-28 08:29] MED LIST changes: +SULF1TAB35 PO
[2018-12-28] MEDS ORDERED: NS 100 ML (IVPB) BAG IV ONE (09:15)
[2018-12-28] MEDS ORDERED: CATHETER FLUSH 10 ML SYR IV PRN (09:15)
[2018-12-28] MEDS ORDERED: IOHEXOL 350 MG/ML 100 ML (OMNIPAQUE 350) VIAL IV ONE (09:15)
[2018-12-28] MEDS ORDERED: HOLD METFORMIN - RECEIVED CONTRAST 20 ML VIAL IV SCH (09:15)
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
[2018-12-28] MEDS ORDERED: CYCL10TA9 PO (10:30)
[2018-12-28] MEDS ORDERED: METH4TAB PO (10:30)
[2018-12-28 10:42] LABS: HEMOGLOBIN 13.9 G/DL (11.5-16.0); MEAN PLATELET VOLUME 10.4 FL (7.4-10.4); RED CELL DISTRIBUTION WIDTH 13.2 % (10.0-14.5); WHITE BLOOD COUNT 5.5 10^3/uL (4.3-11.0)
[2018-12-28 10:43] LABS: CLARITY,URINE CLEAR; COLOR,URINE YELLOW; GLUCOSE, URINE (UA) NEGATIVE (NEGATIVE); PH,URINE 7.5 (5-9); PROTEIN,URINE NEGATIVE (NEGATIVE)
[2018-12-28 10:44] LABS: BILIRUBIN,URINE NEGATIVE (NEGATIVE); KETONES,URINE NEGATIVE (NEGATIVE); LEUKOCYTE ESTERASE ,URINE NEGATIVE (NEGATIVE); NITRITE,URINE NEGATIVE (NEGATIVE)
[2018-12-28 10:53] LABS: ALANINE AMINOTRANSFERASE 9 U/L (0-55); ALBUMIN 4.3 GM/DL (3.2-4.5); ALKALINE PHOSPHATASE 65 U/L (40-136); BILIRUBIN,DIRECT 0.2 MG/DL (0.0-0.3); BILIRUBIN,INDIRECT 0.2 MG/DL; BILIRUBIN,TOTAL 0.4 MG/DL (0.1-1.0); BUN/CREATININE RATIO 12; CALCIUM 9.4 MG/DL (8.5-10.1); CARBON DIOXIDE 19 MMOL/L (21-32); CHLORIDE 109 MMOL/L (98-107); CREATININE SERUM 0.77 MG/DL (0.60-1.30); GFR ESTIMATED > 60; GLUCOSE 100 MG/DL (70-105); POTASSIUM 3.9 MMOL/L (3.6-5.0); SODIUM 141 MMOL/L (135-145); TOTAL PROTEIN 7.1 GM/DL (6.4-8.2)
[2018-12-28 11:00] VITALS: BP 138/85
[2018-12-28 11:03] LABS: BACTERIA,URINE NEGATIVE /HPF; RBC,URINE 0-2 /HPF; WBC,URINE RARE /HPF
== END 2018-12-28 11:00 | disposition home or self-care (01) ==
LOC: EDUNIT# 08:29 → ER 08:30
DX: S16.1XXA Strain of muscle, fascia and tendon at neck level, initial encounter (principal); S30.1XXA Contusion of abdominal wall, initial encounter; S80.01XA Contusion of right knee, initial encounter; J45.909 Unspecified asthma, uncomplicated; F41.9 Anxiety disorder, unspecified; F31.9 Bipolar disorder, unspecified; Z91.5 Personal history of self-harm; Z87.442 Personal history of urinary calculi; Z88.5 Allergy status to narcotic agent; Z88.6 Allergy status to analgesic agent; Z77.22 Contact with and (suspected) exposure to environmental tobacco smoke (acute) (chronic); Z98.51 Tubal ligation status; Z82.49 Family history of ischemic heart disease and other diseases of the circulatory system; V49.40XA Driver injured in collision with unspecified motor vehicles in traffic accident, initial encounter
CPT/HCPCS: 36415; 70450; 71045; 71260; 72125; 72170; 73562; 74177; 80048; 80076; 80320; 81000; 84703; 85027; 93005

== ENCOUNTER 2020-01-19 16:22 | Emergency (ER) | payer BC, OTHER ==
[~2020-01-19] VITALS: Ht 162.5 cm; Wt 65.7 kg
[~2020-01-19 16:22] MED LIST changes: +ACHYD1T PO; -HYDR-3820 PO
[2020-01-19] MEDS ORDERED: cefTRIAXone 500 MG/1.43 ML vial (IM ONLY) IM ONE (17:00)
[2020-01-19] MEDS ORDERED: cefTRIAXone 1,000 MG/2.86 ml vial (IM ONLY) ONE (17:43)
[2020-01-19] MEDS ORDERED: LIDOCAINE 1% INJ 20 ML 20 ML VIAL ONE (17:43)
--- NOTE | 2020-01-19 17:44 | Diagnostic Imaging Report ---
INDICATION: Injury to right foot with nail. AP, oblique, and lateral views of the right foot are obtained No fracture or acute bony abnormality seen. There is no radiopaque foreign body or erosive bony lesion. IMPRESSION: Negative right foot. Dictated by: Dictated on workstation # [id number]
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
[2020-01-19] MEDS ORDERED: CEPH500T PO (18:15)
[2020-01-19 18:20] VITALS: BP 112/74
== END 2020-01-19 18:20 | disposition home or self-care (01) ==
LOC: EDUNIT# 16:22 → ER 16:24
DX: S91.331A Puncture wound without foreign body, right foot, initial encounter (principal); J45.909 Unspecified asthma, uncomplicated; F17.210 Nicotine dependence, cigarettes, uncomplicated; Z82.49 Family history of ischemic heart disease and other diseases of the circulatory system; Z88.5 Allergy status to narcotic agent; Z88.6 Allergy status to analgesic agent; Z79.52 Long term (current) use of systemic steroids; W45.0XXA Nail entering through skin, initial encounter
CPT/HCPCS: 73630

== ENCOUNTER 2021-04-16 10:05 | Emergency (ER) | payer BC ==
[~2021-04-16] VITALS: Ht 162 cm; Wt 68.0 kg
[~2021-04-16 10:05] MED LIST changes: +CYCL10TA25 PO; -PHEN30CA2 PO; +PHEN30CA21 PO; -SULF1TAB35 PO
[2021-04-16 10:30] VITALS: BP 126/78
[2021-04-16] MEDS ORDERED: PRD20T PO (10:53)
--- NOTE | 2021-04-16 10:53 | ED Integumentary General ---
General Chief Complaint: Allergic Reaction Stated Complaint: RASH ALL OVER Nursing Triage Note: ARRIVED VIA AMB WITH COMPLAINTS OF HIVES STARTING LAST NIGHT. BENADRYL 50MG AT 0600 Source: patient Exam Limitations: no limitations History of Present Illness Date Seen by Provider: Apr 16, 2021 Time Seen by Provider: 10:50 Initial Comments To ER with itching and hives to both forearms that have spread to her neck and chest. This started yesterday after she got home from work. No fever no chills no shortness of breath no abdominal pain or diarrhea or cramping. No mouth swelling. History of hives once before related to tapioca but she has not had any of that lately. She has taken a couple of Benadryl most recently at 5 AM this morning with temporary and mild improvement in symptoms. Timing/Duration: yesterday Severity: moderate Location: extremities, generalized Possible Cause: no cause identified Associated Symptoms: denies symptoms Allergies and Home Medications Allergies Coded Allergies: morphine (Unverified Allergy, Severe, throat tightening (Pt has received Tylenol w/Codeine in past, 11/14/16) Patient has received Tylenol with Codeine & Lortab in the past ketorolac (Unverified Adverse Reaction, Intermediate, nausea and red streaking, 06/04/16) Patient Home Medication List Home Medication List Reviewed: Yes Cephalexin (Cephalexin) 500 Mg Tablet, 500 MG PO QID Prescribed by: TEX FINK on 01/19/201814 Cyclobenzaprine HCl (Cyclobenzaprine HCl) 10 Mg Tablet, 10 MG PO Q8H Prescribed by: DEYSI MAX on 12/28/18 1030 Docusate Sodium (Colace) 100 Mg Capsule, 100 MG PO BID Prescribed by: BALDEMAR TABARES on 11/14/16 1148 Hydrocodone Bit/Acetaminophen (Lortab 5 Mg Tablet) 1 Each Tablet, 1 TAB PO Q4H PRN Prescribed by: BALDEMAR TABARES on 11/14/16 1148 Methylprednisolone (Medrol) 4 Mg Tab.ds.pk, 4 MG PO UD Prescribed by: DEYSI MAX on 12/28/18 1030 Sulfamethoxazole/Trimethoprim (Bactrim Ds Tablet) 1 Each Tablet, 1 EACH PO BID Prescribed by: SKIP FLORENCE on 11/07/17 0005 Review of Systems Review of Systems Constitutional: see HPI EENTM: see HPI Respiratory: no symptoms reported Cardiovascular: no symptoms reported Genitourinary: no symptoms reported Musculoskeletal: no symptoms reported Skin: no symptoms reported Psychiatric/Neurological: No Symptoms Reported Endocrine: No Symptoms Reported Past Fyfeyms-Cirtoa-Qdciwo Hx Patient Social History Tobacco Use?: Yes Smoking Status: Current Everyday Smoker Substance use?: No Immunizations Up To Date Tetanus Booster (TDap): Less than 5yrs PED Vaccines UTD: Yes Seasonal Allergies Seasonal Allergies: Yes Past Medical History Surgeries: Yes Gallbladder, Tubal Ligation Respiratory: Yes (SEASONAL) Asthma Cardiac: No Neurological: No Reproductive Disorders: Yes Female Reproductive Disorders: Ovarian Cyst [employer] SE[employer]ETARY History: Tubal Ligation Sexually Transmitted Disease: No HIV/AIDS: No Genitourinary: Yes (NO SURGERY ON KIDNEY STONES) Kidney Stones Gastrointestinal: Yes (S/P CHOLECYSTECTOMY) Gall Bladder Disease Musculoskeletal: No Endocrine: No HEENT: No Loss of Vision: Denies Hearing Impairment: Denies Cancer: No Psychosocial: Yes (MULTIPLE SUICIDE ATTEMPTS AND OVERDOSES; BENZODIAZEPINE WITHDRAWL SYMPTOMS) Anxiety, Suicide Attempts, Bipolar, Depression Integumentary: No Blood Disorders: No Family Medical History CAD Under 55 Years Old Physical Exam Vital Signs Vital Signs - First Documented 04/16/21 10:30 Temp 36.2 Pulse 82 Resp 16 B/P (MAP) 126/78 (94) Pulse Ox 100 O2 Delivery Room Air Capillary Refill : Less Than 3 Seconds General Appearance: WD/WN, no apparent distress HEENT: PERRL/EOMI, normal ENT inspection, TMs normal Neck: non-tender, full range of motion Respiratory: normal breath sounds, no respiratory distress, no accessory muscle use Extremities: normal range of motion, non-tender Neurologic/Psychiatric: alert, normal mood/affect, oriented x 3 Skin: normal color, warm/dry Skin Problem Character: urticarial Progress/Results/Core Measures Results/Orders Vital Signs/I&O 04/16/21 10:30 Temp 36.2 Pulse 82 Resp 16 B/P (MAP) 126/78 (94) Pulse Ox 100 O2 Delivery Room Air 2 Blood Pressure Mean: 94 Departure Impression Primary Impression: Urticaria Disposition: 01 HOME, SELF-CARE Condition: Stable Departure-Patient Inst. Decision time for Depature: 10:52 Referrals: NO,LOCAL PHYSICIAN (PCP) Primary Care Physician Patient Instructions: Hives Add. Discharge Instructions: 1. Take 2 Benadryl as soon as you get out of your car and then continue 1-2 Benadryl every 4-6 hours this will help with itching. Take the oral steroids as directed as soon as you get them. Return to ER for any worsening or other co ncerns. All discharge instructions reviewed with patient and/or family. Voiced understanding. Scripts Prednisone (Prednisone) 20 Mg Tab 40 MG PO DAILY, #6 TAB 0 Refills Prov: KSENIA MAJOR APRN 04/16/21 Work/School Note: Work Release Form Date Seen in the Emergency Department: Apr 16, 2021 Return to Work: May 16, 2021 KSENIA MAJOR APRN Apr 16, 2021 10:53
== END 2021-04-16 11:00 | disposition home or self-care (01) ==
LOC: EDUNIT# 10:05 → ER 10:06
DX: L50.9 Urticaria, unspecified (principal); F17.290 Nicotine dependence, other tobacco product, uncomplicated
CPT/HCPCS: 99281

== ENCOUNTER → 2022-11-20 | Outpatient (CLI) | payer BC ==
[~2022-11-20] MED LIST changes: +PRD20T PO
--- NOTE | 2022-11-20 13:43 | Diagnostic Imaging Report ---
EXAMINATION: Magnetic resonance imaging of the right knee without intravenous contrast DATE: November 20, 2022. COMPARISON: Right knee radiographs December 28, 2018. INDICATION: 42-year-old female, right knee pain. Fall in November 2021. TECHNIQUE: Multiplanar, multisequence non contrast enhanced MR imaging was accomplished. FINDINGS: MENISCI: The medial meniscus is intact. The lateral meniscus is intact. LIGAMENTS AND TENDONS: The anterior and posterior cruciate ligaments are intact. The medial collateral ligament is intact. The iliotibial band, mid third lateral capsular ligament, fibular collateral ligament, biceps femoris tendon and conjoined tendon are intact. The quadriceps tendon and patella ligament are intact. JOINT: The articular cartilage surfaces are intact. There is no knee joint effusion, prominent synovitis, or intra-articular body. BONE: There is unremarkable bone marrow signal. Specifically, negative for fracture, osteomyelitis, osteonecrosis, or marrow replacing process. BURSAE AND SOFT TISSUES: There is nonspecific prepatellar subcutaneous edema. There is no Haley's cyst. IMPRESSION: 1. Grossly unremarkable MRI of the right knee. Dictated by: Dictated on workstation # [id number]
== END ==
LOC: RAD 10:00
PROVIDERS: ATTEND Orthopaedic Surgery
DX: M25.561 Pain in right knee (principal)
CPT/HCPCS: 73721